=== PATIENT | male | born 1970 | race Two or more races ===

== ENCOUNTER → 2023-01-13 09:11 | Outpatient (BNVA) | payer MEDICAID, SELFPAY | PROVIDERS: PCP Student in an Organized Health Care Education/Training Program; Visit Provider Nurse Practitioner Family | DX: G25.81 Restless legs syndrome (principal); G47.19 Other hypersomnia; R06.83 Snoring; R06.81 Apnea, not elsewhere classified | CPT/HCPCS: 99202 ==

== ENCOUNTER → 2023-02-15 09:45 | Outpatient (REF) | payer MEDICAID, SELFPAY | LOC: HO.SL 09:45 | PROVIDERS: PCP Student in an Organized Health Care Education/Training Program; Visit Provider Nurse Practitioner Family | DX: G47.33 Obstructive sleep apnea (adult) (pediatric) (principal); G25.81 Restless legs syndrome; G47.19 Other hypersomnia; R06.83 Snoring | CPT/HCPCS: 95806 ==

== ENCOUNTER → 2023-02-15 09:56 | Outpatient (BNV) | payer MEDICAID, SELFPAY | PROVIDERS: PCP Student in an Organized Health Care Education/Training Program; Visit Provider Psychiatry & Neurology Neurology | DX: G47.33 Obstructive sleep apnea (adult) (pediatric) (principal) | CPT/HCPCS: 95806 ==

== ENCOUNTER → 2023-03-16 19:30 | Outpatient (REF) | payer MEDICAID, SELFPAY | LOC: HO.SL 19:30 | PROVIDERS: PCP Student in an Organized Health Care Education/Training Program; Visit Provider Nurse Practitioner Family | DX: G47.33 Obstructive sleep apnea (adult) (pediatric) (principal) | CPT/HCPCS: 95811 ==

== ENCOUNTER → 2023-03-16 21:05 | Outpatient (BNV) | payer MEDICAID, SELFPAY | PROVIDERS: PCP Student in an Organized Health Care Education/Training Program; Visit Provider Psychiatry & Neurology Neurology | DX: G47.33 Obstructive sleep apnea (adult) (pediatric) (principal) | CPT/HCPCS: 95811 ==

== ENCOUNTER 2023-04-06 08:19 | Outpatient (AMB) | payer MEDICAID, SELFPAY ==
[2023-04-06 08:28] VITALS: BP 114/76; PULSE 64; O2SAT 95; BMI 35.5
--- NOTE | 2023-04-06 08:28 | MHC.OFFVIS ---
Intake Vital Signs 04/06/23 08:28 Height 5 ft 8 in Weight 233 lb 6 oz BMI 35.5 BP 114/76 Blood Pressure Location Rt brachial Position Sitting Pulse 64 Pulse Source Pulse Oximeter Pulse Oximetry (%) 95 Oxygen Delivery Method Room Air Intake Visit Reasons: 2 mo f/u for JAXSON -Confirmed Intake Note: Pt presents as a 2 month f/u for JAXSON. Knurling Machine Tender Required: No Allergies Penicillins Allergy (Severe, Verified 04/06/23 08:31) [facility] Medication List - Last Reconciled 04/06/23 by Jennifer Chandler CNP albuterol sulfate 90 mcg/actuation (Ventolin HFA) inhalation DAILY atorvastatin 40 mg PO DAILY clonazepam 0.5 mg PO DAILY PRN fluticasone propionate 50 mcg/actuation sprays intranasal hydroxyzine pamoate 50 mg PO TID magnesium oxide 400 mg PO DAILY 30 days magnesium oxide 400 mg PO DAILY mirtazapine 45 mg PO BEDTIME paliperidone palmitate (Invega Sustenna) mg IM trazodone mg PO HPI HPI Comments History of Present Illness Details 52 y/o male patient presents for follow up of sleep study. The home sleep study result was significant for severe degree of sleep apnea. The AHI was 69/hr and oxygen brenda was 79%. Pt trialed on CPAP-BiPAP. The obstruction events were controlled but there were treatment emergent central apneas. Pt reports that he sleeps better with magnesium 400 mg,mirtizapine 45 mg and trazodone 50 mg. He had a phone call from [facility] to confirm his information and is insurance processing for BiPAP. [facility] History H/O hernia repair History of surgery on arm Family History Mother Colon cancer Father No problems noted. Social History (Updated 04/06/23 @ 08:34 by Kaylen Fowler CMA) Alcohol intake: former Patient Tobacco Use Status: Current everyday Tobacco user Review of Systems Const All systems reviewed & are unremarkable except as noted in HPI and below ENT Reports Normal hearing present Neuro Reports Normal hearing present Physical Exam Vital Signs: Last Vital Signs Pulse 64 04/06/23 08:28 BP 114/76 04/06/23 08:28 Pulse Ox 95 04/06/23 08:28 Oxygen Delivery Method Room Air 04/06/23 08:28 BMI result Body Mass Index 35.5 Const General: cooperative and tired appearing Nutritional Appearance: obese Orientation/consciousness: patient oriented x3 HEENT Throat: Yes other (mallampati grade 4) Neck Neck: Yes full ROM and Yes supple Resp Effort & Inspection: normal respiratory effort and able to speak in complete sentences Neuro General: patient oriented x3 and gait normal Cranial nerves: Yes Bilaterally intact EOM present, Yes Normal facial strength present, Yes Midline tongue present, Yes Symmetric palate elevation present, Yes Normal hearing present, Yes Ability to bilaterally rotate head present and Yes Ability to bilaterally elevate shoulders present Cognition (Neuro): normal cognition Gait exam (Neuro): Normal gait present Motor exam (neuro): 5/5 motor strength present throughout, Pronator motor function not present and no tremor noted Psych Appearance: grossly normal Mental Status: mental status grossly normal Speech and movement: Normal speech and movement present Affect: normal affect Attitude: cooperative Assessment & Plan Assessment & Plan (1) JAXSON (obstructive sleep apnea): Comment: Severe degree of sleep apnea. The AHI was 68/hr and oxygen brenda was 79%. O2sat <88% was 143 min. Code(s): G47.33 - Obstructive sleep apnea (adult) (pediatric) Plan Advised patient to start BiPAP 23/01 and if pt has frequent central apnea will schedule for ASV titration. Stressed compliance, use BiPAP nightly and more than 4 hrs. [facility] care information given to patient. Continue to take magnesium 400 mg qHS. Medications: Refilled magnesium oxide 400 mg PO DAILY 30 days 30 tabs 1RF magnesium oxide 400 mg PO DAILY 30 days 30 tabs 4RF Coding Level of Care Code Est Pt Level 3 (70828) Diagnoses JAXSON (obstructive sleep apnea) G47.33
== END 2023-04-06 08:58 | disposition home or self-care (01) ==
PROVIDERS: PCP Student in an Organized Health Care Education/Training Program; Visit Provider Nurse Practitioner Family
DX: G47.33 Obstructive sleep apnea (adult) (pediatric) (principal)
CPT/HCPCS: 99213

== ENCOUNTER → 2023-04-06 08:19 | Outpatient (BNVA) | payer MEDICAID, SELFPAY | PROVIDERS: PCP Student in an Organized Health Care Education/Training Program; Visit Provider Nurse Practitioner Family | DX: G47.33 Obstructive sleep apnea (adult) (pediatric) (principal); Z79.899 Other long term (current) drug therapy | CPT/HCPCS: 99212 ==

== ENCOUNTER 2023-06-09 09:33 | Outpatient (REF) | payer MEDICAID, SELFPAY ==
[2023-06-09 15:38] LABS: Anion Gap 11 (12-20); Blood Urea Nitrogen 5 mg/dL (9-16); Calcium 9.3 mg/dL (8.4-10.2); Carbon Dioxide 31 mmol/L (22-29); Chloride 100 mmol/L (96-108); Estimated Glomerular Filt Rate > 60; Glucose Random 61 mg/dL (60-115); Sodium 138 mmol/L (135-145)
[2023-06-09 15:57] LABS: TSH reflex Free T4 1.61 uIU/mL (0.32-4.0)
[2023-06-13 13:08] LABS: Testosterone, Total 69 ng/dL (250-1100)
== END 2023-06-09 09:34 | disposition home or self-care (01) ==
LOC: HO.CHCLDS 09:33
PROVIDERS: Visit Provider Internal Medicine
DX: N52.8 Other male erectile dysfunction (principal)
CPT/HCPCS: 36415; 80048; 84403; 84443

== ENCOUNTER 2023-09-21 09:42 | Outpatient (REF) | payer MEDICAID, SELFPAY ==
[2023-09-21 14:40] LABS: Alanine Aminotransferase 26 U/L (0-40); Albumin Level 3.7 g/dL (3.5-5.0); Alkaline Phosphatase 127 U/L (39-117); Anion Gap 13 (12-20); Aspartate Amino Transferase 20 U/L (5-37); Bilirubin Direct 0.2 mg/dL (0.0-0.5); Bilirubin Total 0.3 mg/dL (0.0-1.0); Blood Urea Nitrogen 6 mg/dL (9-16); Calcium 9.3 mg/dL (8.4-10.2); Carbon Dioxide 29 mmol/L (22-29); Chloride 98 mmol/L (96-108); Cholesterol 156 mg/dL (<200); Estimated Glomerular Filt Rate > 60; Glucose Random 83 mg/dL (60-115); HDL Cholesterol 71 mg/dL (>40); LDL Cholesterol Calculated 74 mg/dL (<100); Potassium 4.2 mmol/L (3.3-5.1); Sodium 136 mmol/L (135-145); Total Protein 7.2 g/dL (6.5-8.0); Triglycerides 57 mg/dL (<150)
[2023-09-21 14:50] LABS: PSA,Total (Free>4and<10) 0.45 ng/mL (0.00-4.00)
[2023-09-22 04:13] LABS: ~HepC Num1 8.13 S/CO (0.00-0.79); ~Hepatitis C Antibody Reactive (Nonreactive)
[2023-09-25 16:04] LABS: HCV Log PCR <1.18 NOT DETECTED Log IU/mL (NOT DETECTED); HepC Viral Load <15 NOT DETECTED IU/mL (NOT DETECTED)
== END 2023-09-21 09:43 | disposition home or self-care (01) ==
LOC: HO.CHCLDS 09:42
PROVIDERS: Visit Provider Student in an Organized Health Care Education/Training Program
DX: E78.00 Pure hypercholesterolemia, unspecified (principal); B18.2 Chronic viral hepatitis C; Z12.5 Encounter for screening for malignant neoplasm of prostate
CPT/HCPCS: 36415; 80048; 80061; 80076; 84153; 86803; 87522

== ENCOUNTER 2024-03-05 10:32 | Outpatient (REF) | payer MEDICAID, SELFPAY | END 2024-03-05 10:33 | disposition home or self-care (01) | LOC: HO.CHCLDS 10:32 | PROVIDERS: Visit Provider Student in an Organized Health Care Education/Training Program | DX: Z13.89 Encounter for screening for other disorder (principal) | CPT/HCPCS: 36415; 80048 ==

== ENCOUNTER 2025-04-23 10:43 | Outpatient (REF) | payer MEDICAID, SELFPAY ==
--- OUTSIDE RECORDS SUMMARY | 2025-04-23 10:15 | XMS_ITS | Encounter Summary ---
Author Organization [employer] Address [address] [facility] 7t [place] [address] Care Team Providers Care Back Up Worker Name Role Phone Tanja Perry MD Primary Care Provider [phone] Reason for Visit * Reason Comments Annual Exam Encounter Details Date Type Department Care Team (Latest Contact Info) Description 04/23/2025 10:15 AM EDT Office Visit [facility] CHC MED & PEDS [address] [place], [place] [phone] Tanja Perry MD [address] [place], [place] [phone] Primary osteoarthritis of right knee (Primary Dx); Chronic hepatitis C without hepatic coma (CMS/HCC); Bilateral leg edema; Intentional heroin overdose, subsequent encounter Social History Tobacco Use Types Packs/Day Years Used Date Smoking Tobacco: Every Day Cigarettes Passive Smoke Exposure: Current Smokeless Tobacco: Never Tobacco Cessation:Ready to Q uit: Not Asked; Counseling Given: Not Answered Depression Answer Date Recorded Patient Health Questionnaire-9 Score 8 04/23/2025 Patient Health Questionnaire-9 Score 8 04/23/2025 Last PHQ-9: Questionnaire Data Not on file 0 04/23/2025 Housing Stability Answer Date Recorded What is your housing situation today? I have louise hammonds 03/05/[address] you li ve. Do you have problems with any of the following? None of the above 03/05/2024 Food Insecurity Answer Date Recorded Within the past 12 months, y ou worried that your food would run out before you got money to buy more: Never True 03/05/2024 Within the past 12 months,th e food you bought just didn't last and you didn't have enough money to get more: Never True Transportation Answer Date Recorded In the past 12 months, has l ack of transportation kept you from medical appts, meetings, work or from getting things needed for daily living? Yes, it has kept me from medical appointments or getting medications. 03/05/2024 Utilities Answer Date Recorded In the past 12 months, has t he electric, gas, oil or water company threatened to shut off services in your home? No 03/05/2024 Depression Answer Date Recorded Patient Health Questionnaire-2 Score 2 04/23/2025 Internet Access Answer Date Recorded Internet Access Q1 Yes 04/08/2024 Internet Access Q2 Not on file 04/08/2024 Sex and Gender Information Value Date Recorded Sex Assigned at Male 06/06/2022 10:29 AM EDT Legal Sex Male 10:29 AM EDT Gender Identity Male 06/06/2022 10:29 AM EDT Sexual Orientation Straight 06/06/2022 10 :29 AM EDT documented as of this encounter Last Filed Vital Signs Vital Sign Reading Time Taken Comments Blood Pressure 130/76 04/23/2025 10:09 AM EDT Pulse 58 04/23/2025 10:09 AM EDT Temperature 36.3 C (97.3 F) 04/23/2025 10:09 AM EDT Respiratory Rate 20 04/23/2025 10:09 AM EDT Oxygen Saturation 97% 04/23/2025 10:09 AM EDT Inhaled Oxygen Concentration - - Weight 88.9 kg (196 lb) 04/23/2025 10:09 AM EDT Height 170.8 cm (5' 7.25 ) 04/23/2025 10:09 AM E DT Body Mass Index 30.47 04/23/2025 10:09 AM EDT documented in this encounter Functional Status * Over the past 2 weeks, how often have you been bothered by any of the following problems? Question Answer Date of Assessment Author Patient Health Questionnaire -2 Score 2 04/23/2025 10:09 AM EDT Tanya Pedroza MA * Little interest or pleasure in doing things Answer Date of Assessment Author Several days 04/23/2025 10:09 AM NORMT Lv Pedroza MA * Feeling down, depressed, or hopeless Answer Date of Assessment Author Several days 04/23/2025 10:09 AM EDT Lv Pedroza MA * Trouble falling or staying asleep, or sleeping too much Answer Date of Assessment Author Nearly every day 04/23/2025 10:09 AM Tanya Bacon MA * Feeling tired or having little energy Answer Date of Assessment Author More than half the days 04/23/2025 10:09 AM Tanya Bacon MA * Poor appetite or overeating Answer Date of Assessment Author Not at all 04/23/2025 10:09 AM Lv Bacon MA * Feeling bad about yourself - or that you are a failure or have let yourself or your family down Answer Date of Assessment Author Several days 04/23/2025 10:09 AM Lv Bacon MA * Trouble concentrating on things, such as reading the newspaper or watching television Answer Date of Assessment Author Not at all 04/23/2025 10:09 AM Lv Bacon MA * Moving or speaking so slowly that other people could have noticed? Or the opposite - being so fidgety or restless that you have been moving around a lot more than usual. Answer Date of Assessment Author Not at all 04/23/2025 10:09 AM Lv Bacon MA * Thoughts that you would be better off or hurting yourself in some way Answer Date of Assessment Author Not at all 04/23/2025 10:09 AM Lv Bacon MA * Patient Health Questionnaire-9 Score Answer Date of Assessment Author 8 04/23/2025 10:09 AM Lv Bacon MA * How difficult have these problems made it for you to do your work, take care of things at home, or get along with other people? Answer Date of Assessment Author Somewhat difficult 04/23/2025 10:09 AM Tanya Bacon MA documented as of this encounter Progress Notes * Tanja Perry MD - 04/23/2025 10:15 AM EDT Subjective Patient ID: Chester Bryan is a 54 y.o. male who presents for No chief complaint on file.. Knee Pain There was no injury mechanism. The pain is present in the right knee and left knee. The quality of the pain is described as aching. The pain is at a severity of 6/10. The pain is moderate. The pain has been Constant since onset. Associated symptoms include an inability to bear weight. The symptoms are aggravated by movement and weight bearing. He has tried nothing for the symptoms. Review of Systems Constitutional: Negative. Respiratory: Negative. Cardiovascular: Negative. Gastrointestinal: Negative. Genitourinary: Negative. Musculoskeletal: Positive for arthralgias and gait problem. Objective Physical Exam Constitutional: Appearance: Normal appearance. HENT: Head: Normocephalic and atraumatic. Right Ear: Tympanic membrane normal. Left Ear: Tympanic membrane normal. Mouth/Throat: Mouth: Mucous membranes are moist. Eyes: Pupils: Pupils are equal, round, and reactive to light. Cardiovascular: Rate and Rhythm: Normal rate and regular rhythm. Pulmonary: Effort: Pulmonary effort is normal. Breath sounds: Normal breath sounds. Abdominal: General: Abdomen is flat. Palpations: Abdomen is soft. Musculoskeletal: General: Normal range of motion. Cervical back: Normal range of motion. Lumbar back: No spasms or tenderness. Skin: General: Skin is warm. Neurological: Mental Status: He is alert. Assessment/Plan Diagnoses and all orders for this visit: Primary osteoarthritis of right knee Comments: Xray ordered Started on tylenol as needed referred to ortho Orders: - XR Knee 1-2 Views Right; Future Chronic hepatitis C without hepatic coma (CMS/HCC) Comments: Labs ordered today Non compliant with follow ups and treatment Bilateral leg edema Comments: Advised low salt diet and leg elevation Labs ordered today Orders: - Basic Metabolic Panel; Future - Lipid Panel, Standard; Future - Hepatic Function Panel; Future Intentional heroin overdose, subsequent encounter Comments: pt was treated in the hospital for same Follows with Methadone clinic documented in this encounter Plan of Treatment Scheduled Orders Name Type Priority Associated Diagnoses Orde r Schedule Basic Metabolic Panel Lab Routine Bilateral leg edema Expected: 04/23/2025 (Approximate), Expires: 04/23/2026 Lipid Panel, Standard Lab Routine Bilateral leg edema Expected: 04/23/2025 (Approximate), Expires: 04/23/2026 Hepatic Function Panel Lab Routine Bilateral leg edema Expected: 04/23/2025 (Approximate), Expires: 04/23/2026 XR Knee 1-2 Views Right Imaging Routine Primary osteoarthritis of right knee Expected: 04/23/2025, Expires: 04/23/2026 documented as of this encounter Visit Diagnoses Diagnosis Primary osteoarthritis of right knee- Primary Chronic hepatitis C without hepatic coma (CMS/HCC) Bilateral leg edema Edema Intentional heroin overdose, subsequent encounter documented in this encounter Additional Health Concerns Assessment Noted Time PHQ-9 Depression Total Score: 8 04/23/20 25 10:09 AM EDT documented as of this encounter Care Teams Back Up Worker Relationship Specialty Start Date End Date Tanja Perry MD [address] [place] [id number] PCP - General Family Medicine 11/17/15 Vi Pacheco Gravity ManagerNaval Aircrewman Helicopter 09/12/23 [facility] [place] [facility] 02/29/24 documented as of this encounter
--- OUTSIDE RECORDS SUMMARY | 2025-04-23 13:32 | XMS_ITS | Encounter Summary ---
Author Organization [employer] Address [address] [facility] [address] [place] [address] Care Team Providers Care Assembler Utility Buildings Name Role Phone Tanja Perry MD Primary Care Provider [phone] Javier Smith RN Unavailable [phone] Reason for Visit * Reason Onset Date Comments Nurse Triage 06/07/2023 Encounter Details Date Type Department Care Team ([facility] st Contact Info) Description 06/07/2023 Telephone [facility] CHC MED & PEDS [address] [place], [place] [phone] Tanja Perry MD [address] [place] [address] Nurse Triage Social History Tobacco Use Types Packs/Day Years Used Date Smoking Tobacco: Every Day Cigarettes Passive Smoke Exposure: Current Smokeless Tobacco: Never Depression Answer Date Recorded Patient Health Questionnaire-9 Score 6 10/20/2022 Housing Stability Answer Date Recorded What is your housing situation today? I have louisekristi hammonds [address] you li ve. Do you have problems with any of the following? None of the above 2023 Food Insecurity Answer Date Recorded Within the past 12 months, y ou worried that your food would run out before you got money to buy more: Sometimes True 2022 Within the past 12 months,th e food you bought just didn't last and you didn't have enough money to get more: Sometimes True 2023 Transportation Answer Date Recorded In the past 12 months, has l ack of transportation kept you from medical appts, meetings, work or from getting things needed for daily living? No 2023 Utilities Answer Date Recorded In the past 12 months, has t he electric, gas, oil or water company threatened to shut off services in your home? No 2023 Depression Answer Date Recorded Patient Health Questionnaire-2 Score 2 10/20/2022 Sex and Gender Information Value Date Recorded Sex Assigned at Male 06/06/2022 10:29 AM EDT Legal Sex Male 10:29 AM EDT Gender Identity Male 06/06/2022 10:29 AM EDT Sexual Orientation Straight 06/06/2022 10 :29 AM EDT documented as of this encounter Miscellaneous Notes * Telephone Encounter - Heidy Ya RN - 06/07/2023 4:28 PM EDT Triage call Pt reports has been in a program for about a year and is home now. Since Pt has been home realizes Pt is unable to obtain an erection. Pt denies any sexually transmitted diseases, pain, rash urinary symptoms. Pt requests to see provider. Apt with Dr. Mattson 06/08/23 @ 330pm, Insurance is verified as active prior to booking. Protocol Used: Penis and Scrotum Symptoms (Adult) Protocol-Based Disposition: See in Office or Video Visit Today or Tomorrow Positive Triage Question: * ALL other penis - scrotum symptoms (Exception: Painless rash < 24 hours duration.) * All higher-acuity triage questions were negative Care Advice Discussed: * Reasons To Call Back - You have more questions * Telephone Encounter - Mary Yoo - 06/07/2023 4:10 PM EDT Symptom: Penis Symptoms Outcome: Schedule an appointment to be seen within 24 hours Reason: erectile dysfunction The caller accepted this outcome Please contact pt at [phone] documented in this encounter Plan of Treatment Not on file documented as of this encounter Visit Diagnoses Not on filedocumented in this encounter Additional Health Concerns Assessment Noted Time PHQ-9 Depression Total Score: 6 10/21/19 23 9:27 AM EDT documented as of this encounter Care Teams Assembler Utility Buildings Relationship Specialty Start Date End Date Tanja Perry MD [address] [place] [id number] PCP - General Family Medicine 11/17/15 Javier Smith, ELIZABETH [address] [place] [phone] Registered Nurse Family Medicine 02/03/25 02/04/25 Vi Pacheco Scissors GrinderForensics Analyst 09/12/23 [facility] 02/29/24 documented as of this encounter
--- OUTSIDE RECORDS SUMMARY | 2025-04-23 13:32 | XMS_ITS | Encounter Summary ---
Author Organization [employer] Address [address] [facility] 7t [place] [address] Care Team Providers Care Talkback Host Name Role Phone Tanja Perry MD Primary Care Provider [phone] Reason for Visit * Reason Onset Date Comments Chart Prep 04/22/2025 Encounter Details Date Type Department Care Team ([facility] st Contact Info) Description 04/22/2025 Telephone [facility] CH[facility] MED & PEDS [address] [place], [place] [phone] Tanja Perry MD [address] [place], [place] [phone] Chart Prep Social History Tobacco Use Types Packs/Day Years [...] encounter Miscellaneous Notes * Telephone Encounter - Tanya Pedroza MA - 04/22/2025 2:32 PM EDT Chart Prep Labs: done Images: done Referrals: complete Vaccines due: due Screenings: colonoscopy Overdue care gaps: SBIRT, SDOH, PHQ-9, Disability screen, and Tobacco documented in this encounter Plan of Treatment Not on file documented as of this encounter Visit Diagnoses Not on filedocumented in this encounter Additional Health Concerns Assessment Noted Time PHQ-9 Depression Total Score: 4 03/05/20 24 9:28 AM EDT documented as of this encounter Care Teams Talkback Host Relationship Specialty Start Date End Date Tanja Perry MD [address] [place] [id number] PCP - General Family Medicine 11/17/15 Vi Pacheco Finance LeadDirector Of Search Engine Marketing 09/12/23 [facility] 02/29/24 documented as of this encounter
--- OUTSIDE RECORDS SUMMARY | 2025-04-23 13:32 | XMS_ITS | Encounter Summary ---
Author Organization [employer] Address [address] [facility] [address] [place] [address] Care Team Providers Care Student Truck Driver Name Role Phone Tanja Perry MD Primary Care Provider [phone] Javier Smith RN Unavailable [phone] Encounter Details Date Type Department Care Team ([facility] st Contact Info) Description 02/12/2024 Orders Only [facility] CHC MED & PEDS [address] [place] [address] ProviderChuck MD Social History Tobacco Use Types Packs/Day Years Used Date Smoking Tobacco: Every Day Cigarettes Passive Smoke Exposure: Current Smokeless Tobacco: Never Depression Answer Date Recorded Patient Health Questionnaire-9 Score 6 10/20/2022 Housing Stability Answer Date Recorded What is your housing situation today? I have louise hammonds [address] you [...] AM EDT documented as of this encounter Plan of Treatment Not on file documented as of this encounter Procedures Procedure Name Priority Date/Time Associated Diagnosis Comments CT CHEST WO CONTRAST Routine 02/12/2024 11:[address] HEAD WO CONTRAST Routine 02/11/2024 9:[address] SOFT TISSUE NECK W CONTRAST Routine 02/11/2024 9:[address] ABDOMEN PELVIS W CONTRAST Routine 02/11/2024 9:13 AM EDT documented in this encounter Results * CT Chest w/o Contrast (02/12/2024 11:52 AM EDT) Anatomical Region Laterality Modality Body, Chest Computed Tomogra phy Historical Provider IMBuffy CT PROCEDURES Final R esult * CT Head w/o Contrast (02/11/2024 9:22 AM EDT) Anatomical Region Laterality Modality Head, Neck Computed Tomogra phy Historical Provider IMBuffy CT PROCEDURES Final R esult * CT SOFT TISSUE NECK W CONTRAST (02/11/2024 9:15 AM EDT) Anatomical Region Laterality Modality Computed Tomogra phy Historical Provider IMBuffy CT PROCEDURES Final R esult * CT Abdomen Pelvis w/ Contrast (02/11/2024 9:13 AM EDT) Anatomical Region Laterality Modality Body, Pelvis, Abdomen Computed T omography Historical Provider IMBuffy CT PROCEDURES Final R esult documented in this encounter Visit Diagnoses Not on filedocumented in this encounter Additional Health Concerns Assessment Noted Time PHQ-9 Depression Total Score: 6 10/21/19 23 9:27 AM EDT documented as of this encounter Care Teams Student Truck Driver Relationship Specialty Start Date End Date Tanja Perry MD [address] [place] [id number] PCP - General Family Medicine 11/17/15 Javier Smith, RN [address] [place] [phone] Registered Nurse Family Medicine 02/03/25 02/04/25 Vi Pacheco Manager PracticeDiesel Roller Operator 09/12/23 [facility] 02/29/24 documented as of this encounter
--- OUTSIDE RECORDS SUMMARY | 2025-04-23 13:32 | XMS_ITS | Encounter Summary ---
Author Organization [employer] Address [address] [facility] 7t [place] [address] Care Team Providers Care Meter Reader Inspector Name Role Phone Tanja Perry MD Primary Care Provider [phone] Javier Smith RN Unavailable [phone] Encounter Details Date Type Department Care Team ([facility] st Contact Info) Description 06/14/2023 Orders Only [facility] CHC MED & PEDS [address] [place], [place] [phone] Isak Mattson MD [address] [place], [place] [phone] Low testosterone in male (Primary Dx); Other male erectile dysfunction Social History Tobacco Use Types Packs/Day Years [...] t he electric, gas, oil or water opentabs threatened to shut off services in your [...] as of this encounter Plan of Treatment Scheduled Orders Name Type Priority Associated Diagnoses Orde r Schedule Testosterone, Free (Dialysis) And Total, MS Lab Routine Low testosterone in male Expected: 06/14/2023 (Approximate), Expires: 06/14/2024 documented as of this encounter Visit Diagnoses Diagnosis Low testosterone in male- Primary Other male erectile dysfunction documented in this encounter Additional Health Concerns Assessment Noted Time PHQ-9 Depression Total Score: 6 10/21/19 23 9:27 AM EDT documented as of this encounter Care Teams Meter Reader Inspector Relationship Specialty Start Date End Date Tanja Perry MD [address] [place] [id number] PCP - General Family Medicine 11/17/15 Javier Smith RN [address] [place] [address] Registered Nurse Family Medicine 02/03/25 02/04/25 Vi Pacheco Saw GrinderSoftware Consultant 09/12/23 [facility] 02/29/24 documented as of this encounter
--- OUTSIDE RECORDS SUMMARY | 2025-04-23 13:32 | XMS_ITS | Encounter Summary ---
Author Organization [employer] Address [address] [facility] [address] [place] [address] Care Team Providers Care Hoisting Machine Operator Name Role Phone Tanja Perry MD Primary Care Provider [phone] Javier Smith RN Unavailable [phone] Reason for Visit * Reason Onset Date Comments Medication Question 06/09/2023 Encounter Details Date Type Department Care Team ([facility] Contact Info) Description 06/09/[address] [facility] CHC MED & PEDS [address] [place], [place] [phone] Tanja Perry MD [address] [place] [address] Medication Question Social History Tobacco Use Types Packs/Day Years [...] encounter Miscellaneous Notes * Telephone Encounter - Mary Fredo - 06/09/2023 4:25 PM EDT Tc from pt states insurance does not cover vardenafil (Levitra) 10 MG tablet. Pt is requesting an alternative. Please contact pt at [phone] documented in this encounter Plan of Treatment Not on file documented as of this encounter Visit Diagnoses Not on filedocumented in this encounter Additional Health Concerns Assessment Noted Time PHQ-9 Depression Total Score: 6 10/21/19 23 9:27 AM EDT documented as of this encounter Care Teams Hoisting Machine Operator Relationship Specialty Start Date End Date Tanja Perry MD [address] [place] [address] PCP - General Family Medicine 11/17/15 Javier Smith, ELIZABETH [address] [place] [id number] Registered Nurse Family Medicine 02/03/25 02/04/25 Vi Pacheco Change Management SpecialistAerographer 09/12/[address] [facility] 02/29/24 documented as of this encounter
--- OUTSIDE RECORDS SUMMARY | 2025-04-23 13:32 | XMS_ITS | Encounter Summary ---
Author Organization [employer] Address [address] [place] [address] Care Team Providers Care Mind Reader Name Role Phone Tanja Perry MD Primary Care Provider [phone] Encounter Details Date Type Department Care Team (Latest Contact Info) Description 04/23/2025 Travel Social History Tobacco Use Types Packs/Day Years Used Date Smoking Tobacco: Every Day Cigarettes Passive Smoke Exposure: Current Smokeless Tobacco: Never Depression Answer Date Recorded Patient Health Questionnaire-9 Score 8 04/23/2025 Patient Health Questionnaire-9 Score 8 04/23/2025 Last PHQ-9: Questionnaire Data Not on file 0 04/23/2025 Housing Stability Answer Date Recorded What is your housing situation today? I have louise nasra 03/05/[address] you li [...] AM EDT documented as of this encounter Functional Status * Over the past 2 weeks, how often have you been bothered by any of the following problems? Question Answer Date of Assessment Author Patient Health Questionnaire -2 Score 2 04/23/2025 10:09 AM Tanya Bacon MA * Little interest or pleasure in doing things Answer Date of Assessment Author Several days 04/23/2025 10:09 AM Lv Bacon [place] * Feeling down, depressed, or hopeless Answer Date of Assessment Author Several days 04/23/2025 10:09 AM Lv Bacon [place] * Trouble falling or staying asleep, [...] Bacon MA documented as of this encounter Plan of Treatment Not on file documented as of this encounter Visit Diagnoses Not on filedocumented in this encounter Additional Health Concerns Assessment Noted Time PHQ-9 Depression Total Score: 8 04/23/20 25 10:09 AM EDT documented as of this encounter Care Teams Mind Reader Relationship Specialty Start Date End Date Tanja Perry MD [address] [place] [id number] PCP - General Family Medicine 11/17/15 Vi Pacheco Culinary InternProfessional Architect 09/12/23 [facility] 02/29/24 documented as of this encounter
--- OUTSIDE RECORDS SUMMARY | 2025-04-23 13:32 | XMS_ITS | Encounter Summary ---
Author Organization [employer] Address [address] [facility] [address] [place] [address] Care Team Providers Care Wildlife Technician Name Role Phone Tanja Perry MD Primary Care Provider [phone] Javier Smith RN Unavailable [phone] Reason for Visit * Reason Onset Date Comments Appointment Request 08/24/2023 Encounter Details Date Type Department Care Team ([facility] Contact Info) Description 08/24/2023 Telephone [facility]EDS [address] [place], [place] [phone] Tanja Perry MD [address] [place] [address] Appointment Request Social History Tobacco Use Types Packs/Day Years [...] encounter Miscellaneous Notes * Telephone Encounter - Monique Pastor - 08/25/2023 2:13 PM EST PT-1 submitted for patient. They will receive a letter of approval or denial in the mail. * Telephone Encounter - Ray Lopez - 08/24/2023 10:09 AM EST Tc from pt requesting a prostate exam with pcp. Pt denied any concerns. Please contact pt at [phone] documented in this encounter Plan of Treatment Not on file documented as of this encounter Visit Diagnoses Not on filedocumented in this encounter Additional Health Concerns Assessment Noted Time PHQ-9 Depression Total Score: 6 10/21/19 23 9:27 AM EDT documented as of this encounter Care Teams Wildlife Technician Relationship Specialty Start Date End Date Tanja Perry MD [address] [place] [id number] PCP - General Family Medicine 11/17/15 Javier Smith RN [address] [place] [address] Registered Nurse Family Medicine 02/03/25 02/04/25 Vi Pacheco DebeaderReal Estate Salesperson 09/12/[address] [facility] 02/29/24 documented as of this encounter
--- OUTSIDE RECORDS SUMMARY | 2025-04-23 13:32 | XMS_ITS | Encounter Summary ---
Author Organization [employer] Address [address] [facility] [address] [place] [address] Care Team Providers Care Icing Maker Name Role Phone Tanja Perry MD Primary Care Provider [phone] Javier Smith RN Unavailable [phone] Encounter Details Date Type Department Care Team (Latest Contact Info) Description 02/18/2019 Abstract [facility] CONVERSIONS Dental, Provider, DDS Social History Tobacco Use Types Packs/Day Years Used Date Smoking Tobacco: Never Assessed Sex and Gender Information Value Date Recorded Sex Assigned at Male 06/06/2022 10:29 AM EDT Legal Sex Male 10:29 AM EDT Gender Identity Male 06/06/2022 10:29 AM EDT Sexual Orientation Straight 06/06/2022 10 :29 AM EDT documented as of this encounter Plan of Treatment Not on file documented as of this encounter Visit Diagnoses Not on filedocumented in this encounter Care Teams Icing Maker Relationship Specialty Start Date End Date Tanja Perry MD [address] [place] [address] PCP - General Family Medicine 11/17/15 Javier Smith, RN [address] [place] [address] Registered Nurse Family Medicine 02/03/25 02/04/25 Vi Pacheco Ceramics EngineerWindows Deployment Technician 09/12/[address] [facility] 02/29/24 documented as of this encounter
--- OUTSIDE RECORDS SUMMARY | 2025-04-23 13:32 | XMS_ITS | Clinical Summary ---
Author Organization [employer] Address [address] [facility] [address] [place] [address] Care Team Providers Care Mva Operator Name Role Phone Tanja Perry MD Primary Care Provider [phone] Allergies Active Allergy Reactions Criticality Noted Date Comments Penicillin G High 11/17/2015 Other reaction(s): Anaphylaxis,Hives Penicillins 06/08/2023 Medications * This document contains information received from the source organization and may not represent a complete record from that organization. clonazePAM (KlonoPIN) 0.5 MG tablet Take 1 tablet by mouth in the morning. Take 1 tablet by oral route every day as needed. Active traZODone (Desyrel) 50 MG tablet Take 1 tablet by mouth at bedtime. Take 1 tablet by oral route every day at bedtime and may repeat x1 dose if needed in 2hrs 2 Active methadone (Methadose) 40 MG dispersible tablet Take 85 mg by mouth 1 (one) time each day. 2 Active vardenafil (Levitra) 10 MG tabletIndications: Other male erectile dysfunction TAKE 1 TABLET 1 HOUR BEFORE SEXUAL RELATIONS ONCE DAILY NEEDED. 10 tablet 3 Active fluticasone (Flonase Allergy Relief) 50 MCG/ACT nasal sprayIndications:M ild asthma without complication, unspecified whether persistent Administer 2 sprays into each nostril in the morning. Inhale 2 spray by intranasal route every day in each nostril 16 g 11 4 Active nicotine (Nicoderm CQ) 7 MG/24HR patch Place 1 patch on the skin 1 (one) time each day at the same time. 30 patch 3 4 Active albuterol 108 (90 Base) MCG/ACT inhalerIndications :Mild intermittent asthma without complication Inhale 2 puffs every 4 (four) hours if needed for wheezing. 18 g 2 4 Active magnesium oxide (Mag-Ox) 400 (240 Mg) MG tablet Take 1 tablet by mouth Once per day. 4 Active Invega Sustenna 156 MG/ML suspension prefilled syringe Inject into the muscle every 30 (thirty) days. 4 Active hydrOXYzine pamoate (Vistaril) 50 MG capsule Take 1 capsule by mouth 3 times daily. 4 Active mirtazapine (Remeron) 45 MG tablet Take 1 tablet by mouth at bedtime. 3 Active ibuprofen 400 MG tablet Take 1 tablet (400 mg) by mouth every 6 (six) hours. Take 1 tablet by oral route every 6-8 hours as needed 60 tablet 4 Active permethrin (Elimite) 5 % cream apply to skin from hairline to toes and wash off 8-10 hours later 60 g 4 Active bacitracin-polymyx in b (Polysporin) ointment Apply topically 2 times daily. 15 g 3 4 Active atorvastatin (Lipitor) 40 MG tabletIndications: Hyperlipidemia, unspecified hyperlipidemia type Take 1 tablet by mouth every day 90 tablet 1 5 Active Active Problems Problem Noted Date Diagnosed Date Rash and nonspecific skin eruption 04/29/2024 Assessment & Plan (04/29/2024 11:46 AM EDT): Prescribing Ibuprofen, Ivermectin, Mupirocin, and Permethrin for Sx. 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 Heroin overdose 06/08/2023 06/08/2023 Asthma 11/17/2015 Chronic hepatitis C 11/17/2015 Mixed bipolar I disorder 11/17/2015 Nondependent opioid abuse 11/17/2015 Osteoarthritis 11/17/2015 Encounters Date Type Department Care Team Description 04/23/2025 10:15 AM EDT Office Visit [facility] [address] [place] [address] Tanja Perry MD Primary osteoarthritis of right knee (Primary Dx); Chronic hepatitis C without hepatic coma (CMS/HCC); Bilateral leg edema; Intentional heroin overdose, subsequent encounter 04/23/2025 Travel 04/22/2025 Telephone [facility] [address] [place] [address] Tanja Perry MD Chart Prep 04/16/2025 Patient Outreach [address] [address] Tanja Perry MD Pre-visit Planning (HDF unscheduled unable to LVM ) 04/14/2025 Telephone [facility] [address] [place] [address] Tanja Perry MD PT1 03/26/2025 Telephone [facility] [address] [place] [address] Tanja Perry MD Hospital Follow-up 03/04/2025 Telephone [facility] [address] [place] [address] Tanja Perry MD Nurse Triage 02/27/2025 Telephone [facility] [address] [place] [address] Tanja Perry MD No Show 02/20/2025 Patient Outreach [address] [address] Tanja Perry MD Care Coordination ([facility] ED Follow Up) 02/19/2025 Patient Outreach [address] [address] Tanja Perry MD Pre-visit Planning (Pre visit planning unable to LVM ) 02/04/2025 Patient Outreach [address] [address] Tanja Perry MD Care Coordination ([facility]- hospital discharge follow up call) 02/03/2025 Patient Outreach [address] [address] Tanja Perry MD from Last 3 Months Immunizations Immunization Administration Dates Next Due Influenza Injectable Quadriv alant Preservative Free IIV4 MDCK 05/20/2018 Influenza injectable quadriv alent IIV4 with preservative 08/12/2022,09/01/2017 Influenza injectable quadrivalent preservative f ree 09/14/2023 Influenza, seasonal, injectable, preservative fr ee 05/29/2024 Tdap 09/01/2017 Zoster, Recombinant 12/24/2021 Social History Tobacco Use Types Packs/Day Years [...] housing situation today? I have louisekristi hammonds 03/05/[address] you [...] Orientation Straight 06/06/2022 10 :29 AM EDT Last Filed Vital Signs Vital Sign Reading [...] Mass Index 30.47 04/23/2025 10:09 AM EDT Plan of Treatment Health Maintenance Due Date Last Done Comments CT Colonography 1968 Colonoscopy 1968 Colorectal Cancer Screening 1968 FIT DNA/Cologuard 1968 FIT 1968 FOBT 1968 Sigmoidoscopy 1968 Hepatitis A Vaccines (1 of 2 - Risk 2-dose series) 1987 Hepatitis B Vaccines (1 of 3 - 19+ 3-dose series) 1987 Pneumococcal Vaccine: 50+ Years (1 of 2 - PCV) 1987 Zoster Vaccines (2 of 2) 02/18/2022 12/24/2021 SDOH Screening 03/05/2025 03/05/2024 COVID-19 Vaccine (4 - season) 2025 09/24/2021, 01/12/2021, 12/15/2020 Influenza Vaccine (#1) 2025 , 09/14/2023, 08/12/2022, Additional history exists Alcohol/Substance Use Screening 04/23/2026 04/23/2025 Depression Screening 04/23/2026 04/23/2025, 04/23/20 25 Disability Screening 04/23/2026 04/23/2025 Tobacco Screening 04/23/2026 04/23/2025 DTaP/Tdap/Td Vaccines (2 - Td or Tdap) 09/01/2027 09/01/2017 Lipid Panel 09/21/2028 09/21/2023, 10/06, 02/18/2022 RSV Patients and Patients Aged 60 years or older (1 - 1-dose 75+ series) 2043 HIV Screening Completed 02/18/2022 HIB Vaccines Aged Out No longer eligi ble based on patient's age to complete this topic HPV Vaccines Aged Out No longer eligi ble based on patient's age to complete this topic IPV Vaccines Aged Out No longer eligi ble based on patient's age to complete this topic Meningococcal B Vaccine Aged Out No l onger eligible based on patient's age to complete this topic Meningococcal Vaccine Aged Out No sarika ravinder eligible based on patient's age to complete this topic RSV under 20 months Aged Out No longe r eligible based on patient's age to complete this topic Rotavirus Vaccines Aged Out No longer eligible based on patient's age to complete this topic Procedures Procedure Name Priority Date/Time Associated Diagnosis Comments LIPID PANEL, STANDARD Routine 09/21/2023 9:44 AM EST Hypercholesteremia HIV 1/2 ANTIGEN/ANTIBODY, FOURTH GENERATION W/RFL Routine 02/18/2022 11:15 AM EDT from Last 3 Months or Most Recently Relevant to Health Maintenance Results * Lipid Panel, Standard (09/21/2023 9:44 AM EST) Triglycerides 57 <150 mg/dL [facility] Comment:Desirable Triglyceri de: less than 150 mg/dLBorderline High Triglyceride 150-199 mg/dLHigh Triglyceride: 200-499 mg/dLVery High Triglyceride: greater than or equal to 5OO mg/dL Cholesterol 156 <200 mg/dL [facility] Comment:Desirable Cholestero l: less than 200 mg/dLBorderline High Cholesterol: 200-239 mg/dLHigh Cholesterol: greater than 239 mg/dL LDL Cholesterol Calculated 74 <100 mg/dL [facility] Comment:Desirable LDL: less than 100 mg/dLNear Optimal/Above Optimal LDL: 110- 129 mg/dLBorderline High LDL: 130-159 mg/dLHigh LDL: 160-189 mg/dLVery High LDL: greater than or equal to 190 mg/dL HDL Cholesterol 71 >40 mg/dL [facility] Comment:Desirable HDL: great er than 40 mg/dL Note: This HDL assay may give artificially low results in patients with liver disease. Blood Venous blood specimen / Unknown 09/21/2023 9:44 AM EST 09/21/2023 2:09 PM EST us Tanja Perry MD LAB BLOOD ORDERABLES Final Resul t Performing Organization Address City/[facility]/ZIP Co de Phone Number [facility] [address] [place] [address] [phone] * HIV 1/2 ANTIGEN/ANTIBODY,FOURTH GENERATION W/RFL (02/18/2022 11:15 AM EDT) [facility] HIV-1/2 ANTIGEN AND ANTIBODIES, 4TH GENERATION W/ REFLEX NON-REACT ISIDRO NON-REACT ISIDRO [facility] Comment: HIV-1 antigen and HIV-1/HIV-2 antibodies were not detected. There is no laboratory evidence of HIV infection. PLEASE NOTE: This information has been disclosed to you from records whose confidentiality may be protected by state law. If your state requires such protection, then the state law prohibits you from making any further disclosure of the information without the specific written consent of the person to whom it pertains, or as otherwise permitted by law. A general authorization for the release of medical or other information is NOT sufficient for this purpose. For additional information please refer to http://education.[employer].Stylehive/faq/LBU133 (This link is being provided for informational/ educational purposes only.) The performance of this assay has not been clinically validated in patients less than 2 years old. 02/18/2022 11:1 5 AM EDT us Korin Howell MD LAB BLOOD ORDERABLES Final Re sult [facility] [address] from Last 3 Months or Most Recently Relevant to Health Maintenance Insurance [facility] C3 Care Teams Mva Operator Relationship Specialty Start Date End Date Tanja Perry MD [address] [place] [id number] PCP - General Family Medicine 11/17/15 Vi Pacheco Animal TechApiculturist 09/12/23 [facility] 02/29/24
[2025-04-23 14:52] LABS: Albumin Level 4.1 g/dL (3.5-5.0); Alkaline Phosphatase 132 U/L (39-117); Anion Gap 12 (12-20); Aspartate Amino Transferase 29 U/L (5-37); Blood Urea Nitrogen 8 mg/dL (9-16); Calcium 9.6 mg/dL (8.4-10.2); Carbon Dioxide 34 mmol/L (22-29); Chloride 98 mmol/L (96-108); Cholesterol 169 mg/dL (<200); Estimated Glomerular Filt Rate > 60; HDL Cholesterol 66 mg/dL (>40); Potassium 4.1 mmol/L (3.3-5.1); Sodium 140 mmol/L (135-145); Total Protein 7.7 g/dL (6.5-8.0); Triglycerides 54 mg/dL (<150)
[2025-04-23 17:17] LABS: Alanine Aminotransferase 32 U/L (0-40)
== END 2025-04-23 10:44 | disposition home or self-care (01) ==
LOC: HO.CHCLDS 10:43
PROVIDERS: Visit Provider Student in an Organized Health Care Education/Training Program
DX: R60.0 Localized edema (principal)
CPT/HCPCS: 36415; 80048; 80061; 80076

== ENCOUNTER 2025-04-30 08:20 | Outpatient (REF) | payer MEDICAID, SELFPAY ==
--- NOTE | ~2025-04-30 | XR_ITS ---
EXAMINATION: XR KNEE, RIGHT CLINICAL INFORMATION: pain COMPARISON: None available. TECHNIQUE: Two views of the right knee. FINDINGS: Normal alignment. No acute fracture. Mild degenerative changes in the medial femorotibial compartment with mild joint space narrowing, small marginal osteophytes and subchondral sclerotic changes of the left medial tibial plateau. Small suprapatellar joint effusion. XR/XR knee RT 2V IMPRESSION: Mild degenerative change of the medial femorotibial compartment. Electronically signed by: Ramiro Briceno MD 04/30/2025 08:51 AM EDT
--- OUTSIDE RECORDS SUMMARY | 2025-04-30 09:02 | XMS_ITS | Clinical Summary ---
Author Organization [employer] Address [address] [facility] 7t [place] [address] Care Team Providers Care Bisque Finisher Name Role Phone Tanja Perry MD Primary Care Provider [phone] Allergies Active Allergy Reactions Criticality Noted Date [...] Description 04/23/2025 10:15 AM EDT Office Visit [facility] [address] [place] [address] Tanja Perry MD Primary osteoarthritis of right knee (Primary Dx); Chronic hepatitis C without hepatic coma (CMS/HCC); Bilateral leg edema; Intentional heroin overdose, subsequent encounter 04/23/2025 Results Follow-Up [facility] [address] [place] [address] Tanja Perry MD Basic Metabolic Panel, Lipid Panel, Standard, Hepatic Function Panel 04/23/2025 Travel 04/22/2025 Telephone [facility] [address] [place] [address] Tanja Perry MD Chart Prep 04/16/2025 Patient Outreach [address] [address] Tanja Perry MD Pre-visit Planning (HDF unscheduled unable to LVM ) 04/14/2025 Telephone [facility] [address] [place] [address] Tanja Perry MD PT1 03/26/2025 Telephone [facility] [address] [place] [address] Tanja Perry MD Hospital Follow-up 03/04/2025 Telephone [facility] [address] [place] [address] Tanja Perry MD Nurse Triage 02/27/2025 Telephone [facility] [address] [place] [address] Tanja Perry MD No Show 02/20/2025 Patient Outreach [address] [address] Tanja Perry MD Care Coordination ([facility] ED Follow Up) 02/19/2025 Patient Outreach [address] [address] Tanja Perry MD Pre-visit Planning (Pre visit planning unable to LVM ) 02/04/2025 Patient Outreach [address] [address] Tanja Perry MD Care Coordination ([facility]- hospital discharge follow up call) 02/03/2025 Patient Outreach [facility] [address] [place] [address] Tanja Perry MD from Last 3 Months [...] Td or Tdap) 09/01/2027 09/01/2017 Lipid Panel 04/23/2030 04/23/2025, 09/07, 10/24/2022, Additional history exists RSV Patients and Patients Aged 60 years [...] Procedure Name Priority Date/Time Associated Diagnosis Comments XR KNEE 1-2 VIEWS RIGHT Routine 04/30/2025 8:45 AM EDT Primary osteoarthritis of right knee HEPATIC FUNCTION PANEL Routine 04/23/2025 10:44 AM EDT Bilateral leg edema LIPID PANEL, STANDARD Routine 04/23/2025 10:44 AM EDT Bilateral leg edema BASIC METABOLIC PANEL Routine 04/23/2025 10:44 AM EDT Bilateral leg edema HIV 1/2 ANTIGEN/ANTIBODY, FOURTH GENERATION W/RFL Routine 02/18/2022 11:15 AM EDT from Last 3 Months or Most Recently Relevant to Health Maintenance Results * XR Knee 1-2 Views Right (04/30/2025 8:45 AM EDT) Anatomical Region Laterality Modality Lower Extremities, Knee Right [facility] 04/30/2025 8:45 AM EDT Narrative 04/30/2025 8:54 AM EDT [facility] [address] [place] [address] XRay Report Signed Patient: Chester Bryan MR#: [id number] 2 : 1970 Acct:[id number] Age/Sex: 54 / M ADM Date: 04/30/25 Loc: [facility] Attending Dr: Tanja Perry MD Ordering Physician: Tanja Perry MD Date of Service: 04/30/25 Procedure(s): XR knee RT 2V Accession Number(s): [id number] cc: Tanja Perry MD Reason for Exam: pain EXAMINATION: XR KNEE, RIGHT CLINICAL INFORMATION: pain COMPARISON: None available. TECHNIQUE: Two views of the right knee. FINDINGS: Normal alignment. No acute fracture. Mild degenerative changes in the medial femorotibial compartment with mild joint space narrowing, small marginal osteophytes and subchondral sclerotic changes of the left medial tibial plateau. Small suprapatellar joint effusion. XR/XR knee RT 2V IMPRESSION: Mild degenerative change of the medial femorotibial compartment. Electronically signed by: Ramiro Briceno MD 04/30/2025 08:51 AM EDT Dictated By: Ramiro Briceno MD Signed By: <Electronically signed by Ramiro Briceno MD in OV> 04/30/25 0851 DD/ 0845 TD/TT: 04/30/25 0846 Forestry Aid Technician: Procedure Note Donotuseinterpreter, Image - 04/30/2025 [facility] [address] [place] [address] XRay Report Signed Patient: Elba BryanR#: [id number] 2 : 1970Acct:[id number] Age/Sex: 54 / MADM Date: 04/30/25 Loc: CX Attending Dr: Tanja Perry MD Ordering Physician: Tanja Perry MD Date of Service: 04/30/25 Procedure(s): XR knee RT 2V Accession Number(s): [id number] cc: Tanja Perry MD Reason for Exam: pain EXAMINATION: XR KNEE, RIGHT CLINICAL INFORMATION: pain COMPARISON: None available. TECHNIQUE: Two views of the right knee. FINDINGS: Normal alignment. No acute fracture. Mild degenerative changes in the medial femorotibial compartment with mild joint space narrowing, small marginal osteophytes and subchondral sclerotic changes of the left medial tibial plateau. Small suprapatellar joint effusion. XR/XR knee RT 2V IMPRESSION: Mild degenerative change of the medial femorotibial compartment. Electronically signed by: Ramiro Briceno MD 04/30/2025 08:51 AM EDT RP Dictated By: Ramiro Briceno MD Signed By: <Electronically signed by Ramiro Briceno MD in OV> 04/30/25 0851 DD/ 0845 TD/TT: 04/30/25 0846 Forestry Aid Technician: Tanja Perry MD IMG XR PROCEDURES Final Result * (ABNORMAL) Hepatic Function Panel (04/23/2025 10:44 AM EDT) Bilirubin, Total 0.5 0.0 - 1.0 mg/dL [facility] Bilirubin, Direct 0.2 0.0 - 0.5 mg/dL [facility] Aspartate Amino Transferase 29 5 - 37 U/L [facility] Alanine Aminotransferase 32 0 - 40 U/L [facility] Total Protein 7.7 6.5 - 8.0 g/dL [facility] Albumin Level 4.1 3.5 - 5.0 g/dL [facility] Alkaline Phosphatase 132(H) 39 - 117 U/L [facility] Blood Venous blood specimen / Unknown 04/23/2025 10:44 AM EDT 04/23/2025 2:00 PM EDT Tanja Perry MD LAB BLOOD ORDERABLES Final Resul t [facility] [address] [place] [phone] * Lipid Panel, Standard (04/23/2025 10:44 AM EDT) Triglycerides 54 <150 mg/dL [facility] Comment:Desirable Triglyceri de: less than 150 mg/dLBorderline High Triglyceride 150-199 mg/dLHigh Triglyceride: 200-499 mg/dLVery High Triglyceride: greater than or equal to 5OO mg/dL Cholesterol 169 <200 mg/dL [facility] Comment:Desirable Cholestero l: less than 200 mg/dLBorderline High Cholesterol: 200-239 mg/dLHigh Cholesterol: greater than 239 mg/dL LDL Cholesterol Calculated 93 <100 mg/dL [facility] Comment:Desirable LDL: less than 100 mg/dLNear Optimal/Above Optimal LDL: 110- 129 mg/dLBorderline High LDL: 130-159 mg/dLHigh LDL: 160-189 mg/dLVery High LDL: greater than or equal to 190 mg/dL HDL Cholesterol 66 >40 mg/dL [facility] Comment:Desirable HDL: great er than 40 mg/dL Note: This HDL assay may give artificially low results in patients with liver disease. Blood Venous blood specimen / Unknown 04/23/2025 10:44 AM EDT 04/23/2025 2:00 PM EDT us Tanja Perry MD LAB BLOOD ORDERABLES Final Resul t [facility] [address] [place] [address] [phone] * (ABNORMAL) Basic Metabolic Panel (04/23/2025 10:44 AM EDT) Sodium 140 135 - 145 mmol/L [facility] Potassium 4.1 3.3 - 5.1 mmol/L [facility] Chloride 98 96 - 108 mmol/L [facility] Carbon Dioxide 34(H) 22 - 29 mmol/L [facility] Anion Gap 12 12 - 20 [facility] Urea Nitrogen (BUN) 8(L) 9 - 16 mg/dL [facility] Creatinine, Serum 0.64 0.5 - 1.4 mg/dL [facility] Estimated Glomerular Filt Rate >60 [facility] Comment:Chronic Kidney Disea se: Estimated GFR < 60 mL/min/1.29k1Kimnps Kidney Disease: Estimated GFR < 15 mL/min/1.73m2 Glucose 69 60 - 115 mg/dL [facility] Calcium 9.6 8.4 - 10.2 mg/dL [facility] Blood Venous blood specimen / Unknown 04/23/2025 10:44 AM EDT 04/23/2025 2:00 PM EDT us Tanja Perry MD LAB BLOOD ORDERABLES Final Resul t [facility] [address] [place] [phone] * HIV 1/2 ANTIGEN/ANTIBODY,FOURTH GENERATION W/RFL (02/18/2022 11:15 AM EDT) HIV-1/2 ANTIGEN AND ANTIBODIES, 4TH GENERATION W/ REFLEX NON-REACT ISIDRO NON-REACT ISIDRO [facility] Comment: HIV-1 antigen and HIV-1/HIV-2 [...] purpose. For additional information please refer to http://education.[employer].Bycler/faq/ZPS433 (This link is being provided for informational/ educational purposes only.) The performance of this assay has not been clinically validated in patients less than 2 years old. 02/18/2022 11:1 5 AM EDT us Korin Howell MD LAB BLOOD ORDERABLES Final Re sult [facility] [address] from Last 3 Months or Most Recently Relevant to Health Maintenance Insurance Care Teams Bisque Finisher Relationship Specialty Start Date End Date Tanja Perry MD [address] [place] [phone] PCP - General Family Medicine 11/17/15 Vi Pacheco Agricultural Produce Commission AgentLife Coach 09/12/23 [facility] 02/29/24
--- OUTSIDE RECORDS SUMMARY | 2025-04-30 09:02 | XMS_ITS | Encounter Summary ---
Author Organization [employer] Address [address] [facility] [address] 7[address] [place] [address] Care Team Providers Care Physician Office Specialist Name Role Phone Tanja Perry MD Primary Care Provider [phone] Javier Smith RN Unavailable [phone] Encounter Details Date Type Department Care Team ([facility] st Contact Info) Description 02/12/2024 Orders Only [facility] [address] [place] [address] ProviderChuck MD Social History Tobacco Use Types [...] documented as of this encounter Care Teams Physician Office Specialist Relationship Specialty Start Date End Date Tanja Perry MD [address] [place] [address] PCP - General Family Medicine 11/17/15 Javier Smith, RN [address] [place] [address] Registered Nurse Family Medicine 02/03/25 02/04/25 Vi Pacheco Night Order SelectorTelehealth Nurse Educator 09/12/23 [facility] 02/29/24 documented as of this encounter
--- OUTSIDE RECORDS SUMMARY | 2025-04-30 09:03 | XMS_ITS | Encounter Summary ---
Author Organization [employer] Address 75 [facility] 7t [place] [address] Care Team Providers Care Oracle Soa Architect Name Role Phone Tanja Perry MD Primary Care Provider Javier Smith RN Unavailable [phone] Encounter Details Date Type Department Care Team (Latest Contact Info) Description 02/18/2019 Abstract [facility] CONVERSIONS Dental, Provider, DDS Social History Tobacco [...] on filedocumented in this encounter Care Teams Oracle Soa Architect Relationship Specialty Start Date End Date Tanja Perry MD [address] [place] [address] PCP - General Family Medicine 11/17/15 Javier Smith, RN [address] [place] [address] Registered Nurse Family Medicine 02/03/25 02/04/25 Vi Pacheco Fish ProtectorNuclear Reactor Technician 09/12/23 [facility] 02/29/24 documented as of this encounter
--- OUTSIDE RECORDS SUMMARY | 2025-04-30 09:03 | XMS_ITS | Encounter Summary ---
Author Organization [employer] Address [address] [facility] 7t [place] [address] Care Team Providers Care Mri Supervisor Name Role Phone Tanja Perry MD Primary Care Provider [phone] Javier Smith RN Unavailable [phone] Reason for Visit * Reason Onset Date Comments Appointment Request 08/24/2023 Encounter Details Date Type Department Care Team ([facility] Contact Info) Description 08/24/2023 Telephone [facility] [address] [place], [place] [phone] Tanja Perry MD [address] [place] [address] Appointment Request Social History Tobacco Use Types [...] denied any concerns. Please contact pt at [phone] documented in this encounter Plan of Treatment Not on file documented as of this encounter Visit Diagnoses Not on filedocumented in this encounter Additional Health Concerns Assessment Noted Time PHQ-9 Depression Total Score: 6 10/21/19 23 9:27 AM EDT documented as of this encounter Care Teams Mri Supervisor Relationship Specialty Start Date End Date Tanja Perry MD [address] [place] [address] PCP - General Family Medicine 11/17/15 Javier Smith RN [address] [place] [address] Registered Nurse Family Medicine 02/03/25 02/04/25 Vi Pacheco Plastic Tile LayerLogging Supervisor 09/12/23 [facility] 02/29/24 documented as of this encounter
--- OUTSIDE RECORDS SUMMARY | 2025-04-30 09:03 | XMS_ITS | Encounter Summary ---
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
--- OUTSIDE RECORDS SUMMARY | 2025-04-30 09:03 | XMS_ITS | Encounter Summary ---
Author Organization [employer] Address [address] [facility] 7t [place] [address] Care Team Providers Care Health Policy Nurse Name Role Phone Tanja Perry MD Primary Care Provider [phone] Javier Smith RN Unavailable [phone] Reason for Visit * Reason Onset Date Comments Nurse Triage 06/07/2023 Encounter Details Date Type Department Care Team ([facility] st Contact Info) Description 06/07/2023 Telephone [facility] [address] [place], [place] [phone] Tanja Perry MD [address] [place] [address] Nurse Triage Social History Tobacco Use Types [...] accepted this outcome Please contact pt at [phone] documented in this encounter Plan of Treatment Not on file documented as of this encounter Visit Diagnoses Not on filedocumented in this encounter Additional Health Concerns Assessment Noted Time PHQ-9 Depression Total Score: 6 10/21/19 23 9:27 AM EDT documented as of this encounter Care Teams Health Policy Nurse Relationship Specialty Start Date End Date Tanja Perry MD [address] [place] [address] PCP - General Family Medicine 11/17/15 Javier Smith, ELIZABETH [address] [place] [address] Registered Nurse Family Medicine 02/03/25 02/04/25 Vi Pacheco Glass ArtistTow Motor Operator 09/12/23 [facility] 02/29/24 documented as of this encounter
--- OUTSIDE RECORDS SUMMARY | 2025-04-30 09:03 | XMS_ITS | Encounter Summary ---
Author Organization [employer] Address [address] [facility] 7t [place] [address] Care Team Providers Care Certified Genetic Counselor Name Role Phone Tanja Perry MD Primary Care Provider [phone] Javier Smith RN Unavailable [phone] Reason for Visit * Reason Onset Date Comments Medication Question 06/09/2023 Encounter Details Date Type Department Care Team ([facility] Contact Info) Description 06/09/2023 Telephone [facility] [address] [place], [place] [phone] Tanja Perry MD [address] [place] [address] Medication Question Social History Tobacco Use Types [...] requesting an alternative. Please contact pt at [phone] documented in this encounter Plan of Treatment Not on file documented as of this encounter Visit Diagnoses Not on filedocumented in this encounter Additional Health Concerns Assessment Noted Time PHQ-9 Depression Total Score: 6 10/21/19 23 9:27 AM EDT documented as of this encounter Care Teams Certified Genetic Counselor Relationship Specialty Start Date End Date Tanja Perry MD [address] [place] [address] PCP - General Family Medicine 11/17/15 Javier Smith, ELIZABETH [address] [place] [phone] Registered Nurse Family Medicine 02/03/25 02/04/25 Vi Pacheco Drop Hammer Pile Driver OperatorStitch Burnisher 09/12/23 [facility] 02/29/24 documented as of this encounter
--- OUTSIDE RECORDS SUMMARY | 2025-04-30 09:03 | XMS_ITS | Clinical Summary ---
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 METHOD 02/01/2025 11:16 PM [facility] Alkaline Phosphatase 195(H) 42 - 121 unit/L LAB CHEMISTRY METHOD 02/01/2025 11:16 PM [facility] Total Protein 6.6 6.0 - 8.0 g/dL LAB CHEMISTRY METHOD 02/01/2025 11:16 PM [facility] Albumin 3.2 3.2 - 5.0 g/dL LAB CHEMISTRY METHOD 02/01/2025 11:16 PM [facility] Total Bilirubin 0.3 0.0 - 1.4 mg/dL LAB CHEMISTRY METHOD 02/01/2025 11:16 PM [facility] Blood Venous blood specimen / Unknown Venipuncture / Unknown 02/01/2025 10:19 PM EDT 02/01/2025 10:40 PM EDT Miah Traore MD LAB BLOOD ORDERABLES Final Resu lt [facility] [address] [place] [address], from Last 3 Months Insurance MEDICAID - [place] Advance Directives Documents on File Type Date Recorded Patient Pawn Broker Expl anation Health Care Decision (hx) 12/08/2011 AD VILLALTA DIRECTIVE Health Care Decision (hx) 12/08/2011 AD VILLALTA DIRECTIVE Health Care Decision (hx) 12/08/2011 AD VILLALTA DIRECTIVE Health Care Decision (hx) 12/08/2011 AD VILLALTA DIRECTIVE * Full Code - Default (Latest Code Status on File) Date Activated Date Inactivated Comments 02/02/2025 12:49 AM 02/03/2025 4:52 PM This is ord er is used when code status has not been discussed with the patient, or code status is otherwise unknown/unconfirmed To update the patient's code status, place a code status order. Do not modify or discontinue any currently active code status orders. Care Teams [employer] Lead Relationship Specialty Start Date End Date Tanja Perry MD [address] [place] [address] PCP - General Family Medicine 02/03/25
== END 2025-04-30 08:21 | disposition home or self-care (01) ==
LOC: HO.HHCX 08:20
PROVIDERS: PCP Student in an Organized Health Care Education/Training Program; Visit Provider Student in an Organized Health Care Education/Training Program
DX: M19.91 Primary osteoarthritis, unspecified site (principal)
CPT/HCPCS: 73560

== ENCOUNTER → 2025-04-30 08:34 | Outpatient (BNV) | payer MEDICAID, SELFPAY | PROVIDERS: PCP Student in an Organized Health Care Education/Training Program; Visit Provider Radiology Body Imaging | DX: M17.11 Unilateral primary osteoarthritis, right knee (principal) | CPT/HCPCS: 73560 ==

== ENCOUNTER 2025-06-03 16:51 | Inpatient (IN) | payer OTHER, SELFPAY ==
--- OUTSIDE RECORDS SUMMARY | 2025-06-02 14:40 | XMS_ITS | Encounter Summary ---
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 Unknown Venipuncture / Unknown 06/02/2025 3:00 PM EDT 06/02/2025 3:16 PM EDT us Claudia ARMENDARIZ LAB BLOOD ORDERABLES Fin al Result [facility] [address] [place] [address], [place] [phone] * Salicylate level (06/02/2025 3:00 PM EDT) Salicylate Level 3.3 2.0 - 29.0 mg/dL LAB CHEMISTRY METHOD 06/02/2025 4:13 PM EDT [facility] Blood Venous blood specimen / Unknown Venipuncture / Unknown 06/02/2025 3:00 PM EDT 06/02/2025 3:16 PM EDT us Claudia ARMENDARIZ LAB BLOOD ORDERABLES Fin al Result [facility] [address] [place] [address], * (ABNORMAL) Acetaminophen level (06/02/2025 3:00 PM EDT) Acetaminophen Level <2.0(L) 10.0 - 30.0 mcg/mL LAB CHEMISTRY METHOD 06/02/2025 4:02 PM EDT [facility] Blood Venous blood specimen / Unknown Venipuncture / Unknown 06/02/2025 3:00 PM EDT 06/02/2025 3:16 PM EDT us Claudia ARMENDARIZ LAB BLOOD ORDERABLES Fin al Result [facility] [address] [place] [address], [place] [phone] * (ABNORMAL) Ethanol (06/02/2025 3:00 PM EDT) Ethanol Level 269(H) 0 - 10 mg/dL LAB CHEMISTRY METHOD 06/02/2025 4:02 PM EDT [facility] Blood Venous blood specimen / Unknown Venipuncture / Unknown 06/02/2025 3:00 PM EDT 06/02/2025 3:16 PM EDT us Claudia ARMENDARIZ LAB BLOOD ORDERABLES Errol stuart Result [facility] [address] [place] [address], * (ABNORMAL) Comprehensive metabolic panel (06/02/2025 3:00 PM EDT) Sodium 131(L) 133 - 145 mmol/L LAB CHEMISTRY METHOD 06/02/2025 4:13 PM EDT [facility] Potassium 3.7 3.5 - 5.5 mmol/L LAB CHEMISTRY METHOD 06/02/2025 4:[address] [facility] Chloride 94(L) 96 - 110 mmol/L LAB CHEMISTRY METHOD 06/02/2025 4:13 PM T [facility] CO2 29 21 - 32 mmol/L LAB CHEMISTRY METHOD 06/02/2025 4:[address] [facility] Anion Gap 8 3 - 11 LAB CHEMISTRY METHOD 06/02/2025 4:[address] [facility] Glucose 121(H) 70 - 100 mg/dL LAB CHEMISTRY METHOD 06/02/2025 4:[address] [facility] BUN 5 5 - 25 mg/dL LAB CHEMISTRY METHOD 06/02/2025 4:[address] [facility] Creatinine 0.68(L) 0.70 - 1.30 mg/dL LAB CHEMISTRY METHOD 06/02/2025 4:[address] [facility] eGFR 108 >=60 mL/min/1. 73m2 LAB CHEMISTRY METHOD 06/02/2025 4:[address] [facility] Comment:Calculation based on the Chronic Kidney Disease Epidemiology Collaboration (CKD-EPI) equation refit without adjustment for race. BUN/Creatinine Ratio 7.4 LAB CHEMISTRY METHOD 06/02/2025 4:13 PM EDT [facility] Calcium 8.9 8.5 - 10.5 mg/dL LAB CHEMISTRY METHOD 06/02/2025 4:13 PM EDT [facility] AST (SGOT) 59(H) 10 - 42 unit/L LAB CHEMISTRY METHOD 06/02/2025 4:13 PM T [facility] ALT (SGPT) 52 10 - 60 unit/L LAB CHEMISTRY METHOD 06/02/2025 4:13 PM EDT [facility] Alkaline Phosphatase 197(H) 42 - 121 unit/L LAB CHEMISTRY METHOD 06/02/2025 4:13 PM EDT [facility] Total Protein 7.6 6.0 - 8.0 g/dL LAB CHEMISTRY METHOD 06/02/2025 4:[address] [facility] Albumin 3.6 3.2 - 5.0 g/dL LAB CHEMISTRY METHOD 06/02/2025 4:13 PM T [facility] Total Bilirubin 0.8 0.0 - 1.4 mg/dL LAB CHEMISTRY METHOD 06/02/2025 4:13 PM EDT [facility] Blood Venous blood specimen / Unknown Venipuncture / Unknown 06/02/2025 3:00 PM EDT 06/02/2025 3:16 PM EDT us Claudia ARMENDARIZ LAB BLOOD ORDERABLES Fin al Result [facility] [address] [place] [address], * ECG 12 lead (06/02/2025 2:56 PM EDT) Ventricular Rate ECG 93 BPM GEMUSE Atrial Rate 93 BPM GEMUSE P-R Interval 160 ms GEMUSE QRS Duration 90 ms GEMUSE Q-T Interval 376 ms GEMUSE QTc 467 ms GEMUSE P Wave Woodruff 65 degrees GEMUSE R Woodruff 24 degrees GEMUSE T Woodruff 13 degrees GEMUSE ECG Interpretation Normal sinus rhythm Abnormal ECG When compared with ECG of 02-FEB-2025 10:01, No significant change was found Confirmed by Tati MEYER JAMES ([id number]) on 06/02/2025 4:25:18 PM GEMUSE 06/02/2025 2:56 PM EDT 06/02/2025 4:25 PM EDT Claudia ARMENDARIZ ECG ORDERABLES Final Re sult GEMUSE documented in this encounter Visit Diagnoses Diagnosis Suicidal ideation- Primary Alcohol withdrawal syndrome without complication (CMS/HCC V24, CMS/HCC V28) Opiate abuse, continuous (CMS/HCC V24, CMS/HCC V28) documented in this encounter Administered Medications Inactive Administered Medications - up to 3 most recent administrations Medication Order MAR Action Action Date Dose Rate Site acamprosate (CAMPRAL) EC tablet 666 mg 666 mg, oral, 3 times daily, First dose on Mon06/02/25 at 2114, Do not crush, chew, or split. Given 06/03/2025 2:53 PM EDT 666 mg atorvastatin (LIPITOR) tablet 40 mg 40 mg, oral, Daily, First dose on Mon06/03/25 at 0900 Given 06/03/2025 8:56 AM EDT 40 mg diazePAM (VALIUM) injection 10 mg 10 mg, intravenous, Every 1 hour PRN, for Severe Alcohol withdrawal: CIWA-Ar GREATER than or EQUAL to 19 WITHOUT evidence of seizure OR hallucinations., Starting on Mon06/02/25 at 1835, Re-assess CIWA-Ar in 1 hour. Hold dose and notify provider for BP LESS than 90/60, RR LESS than 10 per minute, marked somnolence, pooling of secretions, intoxicated symptoms (ataxia, slurred speech) Notify provider if 40 mg is given within 4 hours. Rate of administration should NOT exceed 5 mg/minute. diazePAM (VALIUM) injection 20 mg 20 mg, intravenous, Administer over 8 Minutes, Every 1 hour PRN, for Severe complicated alcohol withdrawal CIWA-Ar GREATER than or EQUAL to 19 AND seizure OR hallucinations., Starting on Mon06/02/25 at 1835, Re-assess CIWA-Ar in 1 hour. Hold dose and notify provider for BP LESS than 90/60, RR LESS than 10 per minute, marked somnolence, pooling of secretions, intoxicated symptoms (ataxia, slurred speech) Notify provider if 40 mg is given within 4 hours. Rate of administration should NOT exceed 5 mg/minute., Indications: withdrawalIndications:withdrawal diazePAM (VALIUM) injection 5 mg 5 mg, intravenous, Every 1 hour PRN, Moderate alcohol withdrawal: CIWA-Ar: 10 1 8 points, Starting on Mon06/02/25 at 1835, Re-assess CIWA-Ar in 1 hour. Hold dose and notify provider for BP LESS than 90/60, RR LESS than 10 per minute, marked somnolence, pooling of secretions, intoxicated symptoms (ataxia, slurred speech) Notify provider if 40 mg is given within 4 hours. Rate of administration should NOT exceed 5 mg/minute. folic acid (FOLVITE) tablet 1 mg 1 mg, oral, Daily, First dose on Mon06/02/25 at 1725 Given 06/02/2025 6:44 PM EDT 1 mg folic acid (FOLVITE) tablet 1 mg 1 mg, oral, Daily, First dose on Mon06/03/25 at 0900, For 246 days Given 06/03/2025 8:56 AM EDT 1 mg gabapentin (NEURONTIN) capsule 300 mg 300 mg, oral, Every 8 hours scheduled, First dose (after last modification) on Mon06/03/25 at 0345 Given 06/03/2025 2:48 PM EDT 300 mg Given 06/03/2025 3:58 AM EDT 300 mg hydrOXYzine pamoate (VISTARIL) capsule 50 mg 50 mg, oral, 3 times daily, First dose on Mon06/02/25 at 2114 Given 06/03/2025 2:48 PM EDT 50 mg Given 06/03/2025 8:56 AM EDT 50 mg Given 06/02/2025 9:46 PM EDT 50 mg magnesium oxide (MAG-OX) tablet 400 mg 400 mg, oral, Daily, First dose on Mon06/03/25 at 0900 Given 06/03/2025 8:56 AM EDT 400 mg methadone (DOLOPHINE) tablet 20 mg 20 mg, oral, Daily, First dose (after last modification) on Mon06/03/25 at 0926 Given 06/03/2025 10:22 AM EDT 20 mg methadone (METHADOSE) dispersible tablet 80 mg 80 mg, oral, Daily, First dose on Mon06/03/25 at 0926, Disperse total dose in ~120 mL of water, orange juice, or other acidic fruit beverage prior to administration; if insoluble excipients remain and do not entirely dissolve, add a small amount of liquid to cup and administer remaining mixture. Do not chew or swallow tablet before dispersing in liquid. Given 06/03/2025 10:22 AM EDT 80 mg multivitamin tablet 1 tablet 1 tablet, oral, Daily, First dose on Mon06/03/25 at 0900 Given 06/03/2025 8:56 AM EDT 1 tablet nicotine (NICODERM CQ) 21 mg/24 hr patch 1 patch 1 patch, transdermal, Administer over 24 Hours, Daily, First dose on Mon06/03/25 at 1451 Patch Applied 06/03/2025 2:53 PM EDT 1 patch Right Arm nicotine polacrilex (NICORETTE) gum 2 mg 2 mg, buccal, Every 1 hour PRN, smoking cessation, Starting on Mon06/03/25 at 1450 ondansetron (PF) (ZOFRAN) injection 4 mg 4 mg, intravenous, Once, On Mon06/03/25 at 0304, For 1 dose Given 06/03/2025 3:07 AM EDT 4 mg thiamine (VITAMIN B-1) tablet 100 mg 100 mg, oral, Daily, First dose on Mon06/02/25 at 1725 Given 06/02/2025 6:44 PM EDT 100 mg thiamine (VITAMIN B-1) tablet 100 mg 100 mg, oral, Daily, First dose on Mon06/03/25 at 0900 Given 06/03/2025 8:56 AM EDT 100 mg traZODone (DESYREL) tablet 50 mg 50 mg, oral, Nightly, First dose on Mon06/02/25 at 2114 Given 06/02/2025 9:46 PM EDT 50 mg documented in this encounter Discontinued Medications Medication Sig Discontinue Reason Start Date End Da te methadone (DOLOPHINE) 10 mg/mL concentrated solutionIndications:opio id use disorder Take 8.5 mL (85 mg total) by mouth 1 (one) time each day. Max Daily Amount: 85 mg Discontinued by another clinician 06/02/2025 documented as of this encounter Historical Medications * This list may reflect changes made after this encounter. magnesium oxide (MAG-OX) 400 mg (241.3 elemental magnesium) tablet Take 1 tablet (400 mg total) by mouth 1 (one) time each day. 02/28/2024 thiamine 100 mg tablet Take 1 tablet (100 mg total) by mouth 1 (one) time each day. 05/21/2025 Tab-A-Ana 400 mcg tablet Take 1 tablet by mouth 1 (one) time each day. 05/21/2025 traZODone (DESYREL) 50 mg tablet Take 1 tablet (50 mg total) by mouth at bedtime. added in this encounter Active and Recently Administered Medications Times are shown in EDT. Scheduled Medication Order 06/01/2025 06/02/2025 06/03/2025 acamprosate (CAMPRAL) EC tablet 666 mg 666 mg, oral, 3 times daily, First dose on Mon06/02/25 at 2114, Do not crush, chew, or split. 2222 (Not Given - Provider: Nicole Donahue RN - Reason: Other - Comment: Pt stated he hasn't been taking x 1 week. Spoke to provider, decision made to hold medication while pt is detoxing from alcohol) 1040 (Not Given - Provider: Vilma Oviedo RN - Reason: Other - Comment: hold while detoxing.)1453 (Given - Provider: Vilma Oviedo RN) atorvastatin (LIPITOR) tablet 40 mg 40 mg, oral, Daily, First dose on Mon06/03/25 at 0900 0856 (Given - Provid er: Vilma Oviedo RN) fluticasone propionate (FLONASE) 50 mcg/actuation nasal spray 2 spray 2 spray, Each Nostril, Daily, First dose on Mon06/03/25 at 0900, Shake gently. Before first use, prime pump (press 6 times until fine spray appears). After use, clean tip and replace cap. 1041 (Not Given - Provider: Vilma Oviedo RN - Reason: Patient/Resident/Agent refused - education provided ) folic acid (FOLVITE) tablet 1 mg (CANCELED) 1 mg, oral, Daily, First dose on Mon06/02/25 at 1725 1844 (Given - Provider: Una Patricio RN - Comment: bh was at bedside) folic acid (FOLVITE) tablet 1 mg 1 mg, oral, Daily, First dose on Mon06/03/25 at 0900, For 246 days 0856 (Given - Provid er: Vilma Oviedo RN) gabapentin (NEURONTIN) capsule 300 mg 300 mg, oral, Every 8 hours scheduled, First dose (after last modification) on Mon06/03/25 at 0345 0358 (Given - Provid er: Arun House RN - Comment: for alcohol withdrawal)1448 (Given - Provider: Vilma Oviedo RN) hydrOXYzine pamoate (VISTARIL) capsule 50 mg 50 mg, oral, 3 times daily, First dose on Mon06/02/25 at 2114 2146 (Given - Provider: Nicole Donahue RN) 0856 (Given - Provider: Vilma Oviedo RN)1448 (Given - Provider: Vilma Oviedo RN) magnesium oxide (MAG-OX) tablet 400 mg 400 mg, oral, Daily, First dose on Mon06/03/25 at 0900 0856 (Given - Provid er: Vilma Oviedo RN) methadone (DOLOPHINE) tablet 20 mg(Linked Group 1) 20 mg, oral, Daily, First dose (after last modification) on Mon06/03/25 at 0926 1022 (Given - Provid er: Vilma Oviedo RN) methadone (METHADOSE) dispersible tablet 80 mg(Linked Group 1) 80 mg, oral, Daily, First dose on Mon06/03/25 at 0926, Disperse total dose in ~120 mL of water, orange juice, or other acidic fruit beverage prior to administration; if insoluble excipients remain and do not entirely dissolve, add a small amount of liquid to cup and administer remaining mixture. Do not chew or swallow tablet before dispersing in liquid. 1022 (Given - Provid er: Vilma Oviedo RN) multivitamin tablet 1 tablet 1 tablet, oral, Daily, First dose on Mon06/03/25 at 0900 0856 (Given - Provid er: Vilma Oviedo RN) nicotine (NICODERM CQ) 21 mg/24 hr patch 1 patch 1 patch, transdermal, Administer over 24 Hours, Daily, First dose on Mon06/03/25 at 1451 1453 (Patch Applied - Provider: Vilma Oviedo RN)1631 (Due: Patch Removed - Provider: Automatic Discharge Provider - Comment: Time automatically adjusted from order being discontinued) ondansetron (PF) (ZOFRAN) injection 4 mg (COMPLETED) 4 mg, intravenous, Once, On Mon06/03/25 at 0304, For 1 dose 0307 (Given - Provid er: Martine Rodriguez RN) thiamine (VITAMIN B-1) tablet 100 mg (CANCELED) 100 mg, oral, Daily, First dose on Mon06/02/25 at 1725 1844 (Given - Provider: Una Patricio RN - Comment: bh as at bedside) thiamine (VITAMIN B-1) tablet 100 mg 100 mg, oral, Daily, First dose on Mon06/03/25 at 0900 0856 (Given - Provid er: Vilma Oviedo RN) traZODone (DESYREL) tablet 50 mg 50 mg, oral, Nightly, First dose on Mon06/02/25 at 2114 2146 (Given - Provider: Nicole Donahue, ELIZABETH) PRN Medication Order 06/01/2025 06/02/2025 06/03/2025 diazePAM (VALIUM) injection 10 mg(Linked Group 2) 10 mg, intravenous, Every 1 hour PRN, for Severe Alcohol withdrawal: CIWA-Ar GREATER than or EQUAL to 19 WITHOUT evidence of seizure OR hallucinations., Starting on Mon06/02/25 at 1835, Re-assess CIWA-Ar in 1 hour. Hold dose and notify provider for BP LESS than 90/60, RR LESS than 10 per minute, marked somnolence, pooling of secretions, intoxicated symptoms (ataxia, slurred speech) Notify provider if 40 mg is given within 4 hours. Rate of administration should NOT exceed 5 mg/minute. diazePAM (VALIUM) injection 20 mg(Linked Group 2) 20 mg, intravenous, Administer over 8 Minutes, Every 1 hour PRN, for Severe complicated alcohol withdrawal CIWA-Ar GREATER than or EQUAL to 19 AND seizure OR hallucinations., Starting on Mon06/02/25 at 1835, Re-assess CIWA-Ar in 1 hour. Hold dose and notify provider for BP LESS than 90/60, RR LESS than 10 per minute, marked somnolence, pooling of secretions, intoxicated symptoms (ataxia, slurred speech) Notify provider if 40 mg is given within 4 hours. Rate of administration should NOT exceed 5 mg/minute., Indications: withdrawal diazePAM (VALIUM) injection 5 mg(Linked Group 2) 5 mg, intravenous, Every 1 hour PRN, Moderate alcohol withdrawal: CIWA-Ar: 10 1 8 points, Starting on Mon06/02/25 at 1835, Re-assess CIWA-Ar in 1 hour. Hold dose and notify provider for BP LESS than 90/60, RR LESS than 10 per minute, marked somnolence, pooling of secretions, intoxicated symptoms (ataxia, slurred speech) Notify provider if 40 mg is given within 4 hours. Rate of administration should NOT exceed 5 mg/minute. nicotine polacrilex (NICORETTE) gum 2 mg 2 mg, buccal, Every 1 hour PRN, smoking cessation, Starting on Mon06/03/25 at 1450 Linked Groups Order Group 1: methadone (DOLOPHINE) tablet 20 mgJump to med 20 mg, oral, Daily, First dose (after last modification) on Mon06/03/25 at 0926 And methadone (METHADOSE) dispersible tablet 80 mgJump to med 80 mg, oral, Daily, First dose on Mon06/03/25 at 0926, Disperse total dose in ~120 mL of water, orange juice, or other acidic fruit beverage prior to administration; if insoluble excipients remain and do not entirely dissolve, add a small amount of liquid to cup and administer remaining mixture. Do not chew or swallow tablet before dispersing in liquid. Group 2: diazePAM (VALIUM) injection 5 mgJump to med 5 mg, intravenous, Every 1 hour PRN, Moderate alcohol withdrawal: CIWA-Ar: 10 1 8 points, Starting on Mon06/02/25 at 1835, Re-assess CIWA-Ar in 1 hour. Hold dose and notify provider for BP LESS than 90/60, RR LESS than 10 per minute, marked somnolence, pooling of secretions, intoxicated symptoms (ataxia, slurred speech) Notify provider if 40 mg is given within 4 hours. Rate of administration should NOT exceed 5 mg/minute. Or diazePAM (VALIUM) injection 10 mgJump to med 10 mg, intravenous, Every 1 hour PRN, for Severe Alcohol withdrawal: CIWA-Ar GREATER than or EQUAL to 19 WITHOUT evidence of seizure OR hallucinations., Starting on Mon06/02/25 at 1835, Re-assess CIWA-Ar in 1 hour. Hold dose and notify provider for BP LESS than 90/60, RR LESS than 10 per minute, marked somnolence, pooling of secretions, intoxicated symptoms (ataxia, slurred speech) Notify provider if 40 mg is given within 4 hours. Rate of administration should NOT exceed 5 mg/minute. Or diazePAM (VALIUM) injection 20 mgJump to med 20 mg, intravenous, Administer over 8 Minutes, Every 1 hour PRN, for Severe complicated alcohol withdrawal CIWA-Ar GREATER than or EQUAL to 19 AND seizure OR hallucinations., Starting on Mon06/02/25 at 1835, Re-assess CIWA-Ar in 1 hour. Hold dose and notify provider for BP LESS than 90/60, RR LESS than 10 per minute, marked somnolence, pooling of secretions, intoxicated symptoms (ataxia, slurred speech) Notify provider if 40 mg is given within 4 hours. Rate of administration should NOT exceed 5 mg/minute., Indications: withdrawal documented in this encounter Orders Medications Ordered That Harjinder ht Not Have Been Administered Count Last Ordered Date First Ordered Date gabapentin (NEURONTIN) capsule 300 mg 1 methadone (DOLOPHINE) tablet 100 mg 2 06/03 nicotine polacrilex (NICORETTE) gum 2 mg 1 06/03/2025 diazePAM (VALIUM) injection 10 mg 3 025 diazePAM (VALIUM) injection 20 mg 1 025 diazePAM (VALIUM) injection 5 mg 2 06/02/20 25 fluticasone propionate (FLON ASE) 50 mcg/actuation nasal spray 2 spray 1 06/02/2025 paliperidone palmitate (INVE GA SUSTENNA) injection 156 mg 1 06/02/2025 Nursing Count Last Ordered Date First Orde red Date NURSING GENERAL ASSESSMENTS AND INTERVENTIONS 1 06/02/2025 Consult Count Last Ordered Date First Orde red Date IP CONSULT TO HAT LACER 1 06/02/2025 documented in this encounter Care Teams Rn Cardiovascular Relationship Specialty Start Date End Date Tanja Perry MD [address] [place] [address] PCP - General Family Medicine 02/03/25 documented as of this encounter
[2025-06-03 17:16] VITALS: BMI 29.4
[2025-06-03 17:17] VITALS: BP 131/62; PULSE 106; RESP 18; TEMP 37.9; O2SAT 93
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
[2025-06-03] MEDS: Flu Vacc TS2025-26(6mo up)/PF 0.5 ML SYRINGE IM (19:22)
--- NOTE | 2025-06-03 19:32 | HE.PHANOTE ---
Methadone verified [facility] 100 mg last dose 06/03/25@4624
[2025-06-03 19:55] VITALS: BP 118/67; PULSE 108; RESP 16; TEMP 37.3; O2SAT 95
--- OUTSIDE RECORDS SUMMARY | 2025-06-03 20:15 | XMS_ITS | Encounter Summary ---
Author Organization [employer] Address [address] [place] [address] Care Team Providers Care Arc And Gas Welder Name Role Phone Tanja Perry MD Primary Care Provider [phone] Javier Smith RN Unavailable [phone] Alia Taylor Unavailable Encounter Details Date Type Department Care Team (Late st Contact Info) Description 02/12/2024 Orders Only [facility] [address] [place], [place] [id number] Provider, MD Chuck Social History Tobacco Use Types Packs/Day Years [...] Head, Neck Computed Tomogra phy Historical Provider IMG CT PROCEDURES Final R esult * CT SOFT TISSUE NECK W CONTRAST (02/11/2024 9:15 AM EDT) Anatomical Region Laterality Modality Computed Tomogra phy Historical Provider IMG CT PROCEDURES Final R esult * CT Abdomen Pelvis w/ Contrast (02/11/2024 9:13 AM EDT) Anatomical Region Laterality Modality Body, Pelvis, Abdomen Computed T omography Historical Provider IMG CT PROCEDURES Final R esult documented in this encounter Visit Diagnoses Not on filedocumented in this encounter Additional Health Concerns Assessment Noted Time PHQ-9 Depression Total Score: 6 10/21/19 23 9:27 AM EDT documented as of this encounter Care Teams Arc And Gas Welder Relationship Specialty Start Date End Date Tanja Perry MD [address] [place] [id number] PCP - General Family Medicine 11/17/15 Javier Smith, RN [address] [place] [id number] Registered Nurse Family Medicine 02/03/25 02/04/25 Alai Taylor 06/03/25 Vi Pacheco Wire Brush MakerMailing Section Clerk 09/12/23 [facility] 02/29/24 documented as of this encounter
--- OUTSIDE RECORDS SUMMARY | 2025-06-03 20:15 | XMS_ITS | Clinical Summary ---
Author Organization [employer] Address [address] [facility] [address] [place] [address] Care Team Providers Care Ear Mold Laboratory Technician Name Role Phone Tanja Perry MD Primary Care Provider [phone] Alia Taylor Unavailable Allergies Active Allergy Reactions Criticality Noted Date [...] repeat x1 dose if needed in 2hrs Active methadone (Methadose) 40 MG dispersible tablet Take 85 mg by mouth 1 (one) time each day. 022 Active vardenafil (Levitra) 10 MG tabletIndications :Other male erectile dysfunction TAKE 1 TABLET 1 HOUR BEFORE SEXUAL RELATIONS ONCE DAILY NEEDED. 10 tablet 023 Active fluticasone (Flonase Allergy Relief) 50 MCG/ACT nasal sprayIndications: Mild asthma without complication, unspecified whether persistent Administer 2 sprays into each nostril in the morning. Inhale 2 spray by intranasal route every day in each nostril 16 g 11 024 Active nicotine (Nicoderm CQ) 7 MG/24HR patch Place 1 patch on the skin 1 (one) time each day at the same time. 30 patch 3 024 Active albuterol 108 (90 Base) MCG/ACT inhalerIndication s:Mild intermittent asthma without complication Inhale 2 puffs every 4 (four) hours if needed for wheezing. 18 g 2 Active magnesium oxide (Mag-Ox) 400 (240 Mg) MG tablet Take 1 tablet by mouth Once per day. Active Invega Sustenna 156 MG/ML suspension prefilled syringe Inject into the muscle every 30 (thirty) days. Active hydrOXYzine pamoate (Vistaril) 50 MG capsule Take 1 capsule by mouth 3 times daily. Active mirtazapine (Remeron) 45 MG tablet Take 1 tablet by mouth at bedtime. Active ibuprofen 400 MG tablet Take 1 tablet (400 mg) by mouth every 6 (six) hours. Take 1 tablet by oral route every 6-8 hours as needed 60 tablet Active permethrin (Elimite) 5 % cream apply to skin from hairline to toes and wash off 8-10 hours later 60 g 024 Active bacitracin-polymy jonelle b (Polysporin) ointment Apply topically 2 times daily. 15 g 3 Active atorvastatin (Lipitor) 40 MG tabletIndications :Hyperlipidemia, unspecified hyperlipidemia type Take 1 tablet by mouth every day 90 tablet 2 Active atorvastatin (Lipitor) 40 MG tabletIndications :Hyperlipidemia, unspecified hyperlipidemia type Take 1 tablet by mouth every day 90 tablet 1 025 2024 Discontinued(R eorder (will not trigger notification to Pharmacy)) Active Problems Problem Noted Date Diagnosed Date Rash and nonspecific skin eruption 04/29/2024 Assessment & Plan (04/29/2024 11:46 AM EDT): Prescribing Ibuprofen, Ivermectin, Mupirocin, and Permethrin for Sx. 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 [address] [place] [address] Tanja Perry MD Care Coordination (CP Care Coordination Chart review) 06/03/[address] [facility] [address] [place] [address] Tanja Perry MD Care Coordination ([facility] ED Follow Up) 06/03/[address] [facility] [address] [place] [address] Chuck House MD 06/03/2025 Patient Outreach [address] [address] Tanja Perry MD 05/13/[address] [facility] [address] [place] [address] Tanja Perry MD Hyperlipidemia, unspecified hyperlipidemia type 04/23/2025 10:15 AM EDT Office Visit [facility] [address] [place] [address] Tanja Perry MD Primary osteoarthritis of right knee (Primary Dx); Chronic hepatitis C without hepatic coma (CMS/HCC); Bilateral leg edema; Intentional heroin overdose, subsequent encounter 04/23/2025 Results Follow-Up [facility] [address] [place] [address] Tanja Perry MD Basic Metabolic Panel, Lipid Panel, Standard, Hepatic Function Panel, XR Knee 1-2 Views Right 04/23/2025 Travel 04/22/[address] [facility] [address] [place] [address] Tanja Perry MD Chart Prep 04/16/2025 Patient Outreach [address] [address] Tanja Perry MD Pre-visit Planning (HDF unscheduled unable to LVM ) 04/14/[address] [facility] [address] [place] [address] Tanja Perry MD PT1 03/26/[address] [facility] [address] [place] [address] Tanja Perry MD Hospital Follow-up 03/04/[address] [facility] [address] [facility] [place] [address] Tanja Perry MD Nurse Triage from Last 3 Months Immunizations Immunization Administration [...] 12/24/2021 SDOH Screening 03/05/2025 03/05/2024 COVID-19 Vaccine ( - season) 2025 09/24/2021, 01/12/2021, 12/15/2020 Influenza Vaccine (#1) 2025 , 09/14/2023, 08/12/2022, Additional history exists Alcohol/Substance Use Screening 04/23/2026 04/23/2025 Depression Screening 04/23/2026 04/23/2025, 04/23/20 Disability Screening 04/23/2026 04/23/2025 Tobacco Screening 04/23/2026 [...] Procedure Name Priority Date/Time Associated Diagnosis Comments ECG 12-LEAD Routine 06/02/2025 10:19 AM EDT XR KNEE 1-2 VIEWS RIGHT Routine 04/30/2025 [...] Recently Relevant to Health Maintenance Results * ECG 12 lead (06/02/2025 10:19 AM EDT) us Historical Provider ECG ORDERABLES Final Res ult * XR Knee 1-2 Views Right (04/30/2025 8:45 AM EDT) Anatomical Region Laterality Modality Lower Extremities, Knee Right Radiogra phic Imaging 04/30/2025 8:45 AM EDT Narrative 04/30/2025 8:54 AM EDT [address] [address] XRay Report Signed Patient: Chester Bryan MR#: [id number] 2 : 1970 Acct:[id number] Age/Sex: 54 / M ADM Date: 04/30/25 Loc: .[facility] Attending Dr: Tanja Perry MD Ordering Physician: Tanja Perry MD Date of Service: 04/30/25 Procedure(s): XR knee RT 2V Accession Number(s): [id number] cc: Tanja Perry MD Reason for Exam: [...] 04/30/25 0851 DD/ 0845 TD/TT: 04/30/25 0846 Route Jumper: Procedure Note Akinter, Image - 04/30/2025 [facility] [address] [place] [address] XRay Report Signed Patient: Gagan Bryan#: [id number] 2 : 1970Acct:[id number] Age/Sex: 54 / MADM Date: 04/30/25 Loc: .[facility] Attending Dr: Tanja Perry MD Ordering Physician: Tanja Perry MD Date of Service: 04/30/25 Procedure(s): XR knee RT 2V Accession Number(s): [id number] cc: Tanja Perry MD Reason for Exam: [...] 04/30/25 0851 DD/ 0845 TD/TT: 04/30/25 0846 Route Jumper: us Tanja Perry MD IMG XR PROCEDURES Final Result * (ABNORMAL) Hepatic Function Panel (04/23/2025 10:44 AM EDT) Bilirubin, Total 0.5 0.0 - 1.0 mg/dL [facility] Bilirubin, Direct 0.2 0.0 - 0.5 mg/dL [facility] Aspartate Amino Transferase 29 5 - 37 U/L [facility] Alanine Aminotransferase 32 0 - 40 U/L [facility] Total Protein 7.7 6.5 - 8.0 g/dL [facility] Albumin Level 4.1 3.5 - 5.0 g/dL [facility] Alkaline Phosphatase 132(H) 39 - 117 U/L [facility] Blood Venous blood specimen / Unknown 04/23/2025 10:44 AM EDT 04/23/2025 2:00 PM EDT us Tanja Perry MD LAB BLOOD ORDERABLES Final Resul t Performing Organization Address City/[facility]/ZIP Co de Phone Number [facility] [address] [place], [place] [phone] * Lipid Panel, Standard (04/23/2025 10:44 AM EDT) Triglycerides 54 <150 mg/dL [facility] Comment:Desirable Triglyceri de: less than 150 mg/dLBorderline High Triglyceride 150-199 mg/dLHigh Triglyceride: 200-499 mg/dLVery High Triglyceride: greater than or equal to 5OO mg/dL Cholesterol 169 <200 mg/dL [facility] Comment:Desirable Cholestero l: less than 200 mg/dLBorderline High Cholesterol: 200-239 mg/dLHigh Cholesterol: greater than 239 mg/dL LDL Cholesterol Calculated 93 <100 mg/dL [facility] Comment:Desirable LDL: less than 100 mg/dLNear Optimal/Above Optimal LDL: 110- 129 mg/dLBorderline High LDL: 130-159 mg/dLHigh LDL: 160-189 mg/dLVery High LDL: greater than or equal to 190 mg/dL HDL Cholesterol 66 >40 mg/dL [facility] Comment:Desirable HDL: great er than 40 mg/dL Note: This HDL assay may give artificially low results in patients with liver disease. Blood Venous blood specimen / Unknown 04/23/2025 10:44 AM EDT 04/23/2025 2:00 PM EDT us Tanja Perry MD LAB BLOOD ORDERABLES Final Resul t [facility] [address] [place] [address] [phone] * (ABNORMAL) Basic Metabolic Panel (04/23/2025 10:44 AM EDT) Sodium 140 135 - 145 mmol/L [facility] Potassium 4.1 3.3 - 5.1 mmol/L [facility] Chloride 98 96 - 108 mmol/L [facility] Carbon Dioxide 34(H) 22 - 29 mmol/L [facility] Anion Gap 12 12 - 20 [facility] Urea Nitrogen (BUN) 8(L) 9 - 16 mg/dL [facility] Creatinine, Serum 0.64 0.5 - 1.4 mg/dL [facility] Estimated Glomerular Filt Rate >60 [facility] Comment:Chronic Kidney Disea se: Estimated GFR < 60 mL/min/1.02z5Ccarqt Kidney Disease: Estimated GFR < 15 mL/min/1.73m2 Glucose 69 60 - 115 mg/dL [facility] Calcium 9.6 8.4 - 10.2 mg/dL [facility] Blood Venous blood specimen / Unknown 04/23/2025 10:44 AM EDT 04/23/2025 2:00 PM EDT us Tanja Perry MD LAB BLOOD ORDERABLES Final Resul t [facility] [address] [place] [phone] [phone] * HIV 1/2 ANTIGEN/ANTIBODY,FOURTH GENERATION W/RFL (02/18/2022 11:15 AM EDT) HIV-1/2 ANTIGEN AND ANTIBODIES, 4TH GENERATION W/ REFLEX NON-REACT [facility] Comment: HIV-1 antigen and HIV-1/HIV-2 [...] purpose. For additional information please refer to http://education.Builk/faq/HWZ165 (This link is being provided for informational/ educational purposes only.) The performance of this assay has not been clinically validated in patients less than 2 years old. 02/18/2022 11:1 5 AM EDT us Korin Howell MD LAB BLOOD ORDERABLES Final Re sult [facility] [address] from Last 3 Months or Most Recently Relevant to Health Maintenance Insurance [facility] C3 Care Teams Ear Mold Laboratory Technician Relationship Specialty Start Date End Date Tanja Perry MD [address] [place] [address] PCP - General Family Medicine 11/17/15 Alia Taylor 06/03/25 [employer] Pul[employer] Mortising Machine OperatorAssembler Handbags 09/12/23 [facility] 02/29/24
--- OUTSIDE RECORDS SUMMARY | 2025-06-03 20:15 | XMS_ITS | Encounter Summary ---
Author Organization [employer] Address [address] [facility] [address] [place] [address] Care Team Providers Care Commercial Crabber Name Role Phone Tanja Perry MD Primary Care Provider [phone] Javier Smith RN Unavailable [phone] Alia Taylor Unavailable Encounter Details Date Type Department Care Team (Latest Contact Info) Description 02/18/2019 Abstract [facility] CONVERSIONS Dental, Provider, DDS Social History [...] on filedocumented in this encounter Care Teams Commercial Crabber Relationship Specialty Start Date End Date Tanja Perry MD [address] [place] [address] PCP - General Family Medicine 11/17/15 Javier Smith, RN [address] [place] [phone] Registered Nurse Family Medicine 02/03/25 02/04/25 Aila Taylor 06/03/25 [employer] InstructorTank Hoop Bender 09/12/23 [facility] 02/29/24 documented as of this encounter
--- OUTSIDE RECORDS SUMMARY | 2025-06-03 20:15 | XMS_ITS | Clinical Summary ---
Author Organization [facility] [place] [address] Phone Care Team Providers Care Bleach Tester Name Role Phone Tanja Perry MD Primary Care Provider [phone] Allergies Active Allergy Reactions Criticality Noted Date Comments Penicillins Anaphylaxis High 09/20/2024 Medications acamprosate (CAMPRAL) 333 mg EC tablet Take 2 tablets (666 mg total) by mouth 3 (three) times a day. 01/07/20 25 Active atorvastatin (LIPITOR) 40 mg tablet Take 1 tablet (40 mg total) by mouth 1 (one) time each day. 11/06/19 25 Active hydrOXYzine pamoate (VISTARIL) 50 mg capsule Take 1 capsule (50 mg total) by mouth 3 times daily. 02/01/20 24 Active Invega Sustenna 156 mg/mL syringe Inject 1 mL (156 mg total) into the shoulder, thigh, or buttocks every 30 (thirty) days. 02/14/20 24 Active folic acid (FOLVITE) 1 mg tablet Take 1 tablet (1 mg total) by mouth 1 (one) time each day. 30 each 02/05/20 25 026 Active fluticasone propionate (FLONASE) 50 mcg/actuation nasal spray Administer 2 sprays into each nostril 1 (one) time each day. Shake gently. Before first use, prime pump. After use, clean tip and replace cap. 16 g 02/05/20 25 026 Active nystatin-triamci nolone (MYCOLOG II) cream Apply topically 2 (two) times a day. Apply to affected area daily 15 g 1 02/20/20 Active traZODone (DESYREL) 50 mg tablet Take 1 tablet (50 mg total) by mouth at bedtime. Active Tab-A-Ana 400 mcg tablet Take 1 tablet by mouth 1 (one) time each day. 05/21/20 Active thiamine 100 mg tablet Take 1 tablet (100 mg total) by mouth 1 (one) time each day. 05/21/20 Active magnesium oxide (MAG-OX) 400 mg (241.3 elemental magnesium) tablet Take 1 tablet (400 mg total) by mouth 1 (one) time each day. 02/28/20 24 Active methadone (DOLOPHINE) 10 mg/mL concentrated solutionIndicati ons:opioid use disorder Take 8.5 mL (85 mg total) by mouth 1 (one) time each day. Max Daily Amount: 85 mg 025 Discontinu ed(Discont inued by another clinician) Active Problems Problem Noted Date Diagnosed Date Sinus bradycardia 02/03/2025 Metabolic encephalopathy 02/02/2025 Encounters Date Type Department Care Team Description 06/02/2025 2:40 PM EDT - 06/03/2025 4:31 PM EDT Emergency [facility] Emergency [address] [place] [address] Kenneth Liang MD Ziebro, John, MD Gordon, Ruth, MD Goebel, Mathew, MD Suicidal ideation (Primary Dx); Alcohol withdrawal syndrome without complication ([facility] V24, [facility] V28); Opiate abuse, continuous ([facility] V24, [facility] V28) Discharge Disposition: Psychiatric Hospital from Last 3 Months Medical History Medical [...] Mass Index 29.76 06/02/2025 2:47 PM EDT Plan of Treatment Health Maintenance Due Date Last Done Comments Colorectal Cancer Screening: Colonoscopy 1968 Hepatitis A Vaccines (1 of 2 - Risk 2-dose series) 1987 Hepatitis B Vaccines (1 of 3 - 19+ 3-dose series) 1987 Pneumococcal Vaccine: 50+ Years (1 of 2 - PCV) 1987 RSV Immunization Adult Patients (1 - Risk 50-74 years 1-dose series) 2018 Zoster Vaccines (2 of 2) 02/18/2022 12/24/2021 Hepatitis C Screening 07/10/2022 Social Influencers of Health Screening 07/10/2022 Depression Screening 08/07/2024 COVID-19 Vaccine ( - season) 2025 09/24/2021, 01/12/2021, 12/15/2020 Influenza Vaccine (#1) 2025 , 09/14/2023, 08/12/2022, Additional history exists DTaP,Tdap,and Td Vaccines (2 - Td or Tdap) 09/01/2027 09/01/2017 Cholesterol Screening (Lipid Panel) 04/23/2030 04/23/2025, 09/21/2023 HIV Screening Completed 02/18/2022 HIB Vaccines [...] METABOLIC PANEL STAT 06/03/2025 10:08 AM EDT METHADONE SCREEN, URINE STAT 06/02/2025 3:05 PM EDT PHENCYCLIDINE, URINE STAT 06/02/2025 3:05 PM EDT BUPRENORPHINE SCREEN, URINE STAT 06/02/2025 3:05 PM EDT DRUG ABUSE SCREEN 8A PANEL, URINE STAT 06/02/2025 3:05 PM EDT CBC WITH AUTO DIFFERENTIAL STAT 06/02/2025 3:00 PM EDT SALICYLATE LEVEL STAT 06/02/2025 3:00 PM EDT ACETAMINOPHEN LEVEL STAT 06/02/2025 3 :00 PM EDT ETHANOL STAT 06/02/2025 3:00 PM EDT COMPREHENSIVE METABOLIC PANEL STAT 06/02/2025 3:00 PM EDT CBC AND DIFFERENTIAL STAT 06/02/2025 3:00 PM EDT ECG 12-LEAD STAT 06/02/2025 2:56 PM EDT from Last 3 Months Results * (ABNORMAL) Basic Metabolic Panel (BMP) (06/03/2025 10:08 AM EDT) Sodium 135 133 - 145 mmol/L LAB CHEMISTRY METHOD 06/03/2025 11:22 AM [facility] Potassium 3.8 3.5 - 5.5 mmol/L LAB CHEMISTRY METHOD 06/03/2025 11:22 AM [facility] Chloride 98 96 - 110 mmol/L LAB CHEMISTRY METHOD 06/03/2025 11:22 AM [facility] CO2 34(H) 21 - 32 mmol/L LAB CHEMISTRY METHOD 06/03/2025 11:22 AM [facility] Anion Gap 3 3 - 11 LAB CHEMISTRY METHOD 06/03/2025 11:22 AM [facility] Glucose 128(H) 70 - 100 mg/dL LAB CHEMISTRY METHOD 06/03/2025 11:22 AM [facility] BUN 6 5 - 25 mg/dL LAB CHEMISTRY METHOD 06/03/2025 11:22 AM [facility] Creatinine 0.66(L) 0.70 - 1.30 mg/dL LAB CHEMISTRY METHOD 06/03/2025 11:22 AM [facility] eGFR 109 >=60 mL/min/1. 73m2 LAB CHEMISTRY METHOD 06/03/2025 11:22 AM [facility] Comment:Calculation based on the Chronic Kidney Disease Epidemiology Collaboration (CKD-EPI) equation refit without adjustment for race. BUN/Creatinine Ratio 9.1 LAB CHEMISTRY METHOD 06/03/2025 11:22 AM [facility] Calcium 8.8 8.5 - 10.5 mg/dL LAB CHEMISTRY METHOD 06/03/2025 11:22 AM [facility] Blood Venous blood specimen / Unknown Venipuncture / Unknown 06/03/2025 10:08 AM EDT 06/03/2025 10:49 AM EDT us Tarik Mancera MD LAB BLOOD ORDERABLES Final Resu lt [facility] [address] [place] [address], * (ABNORMAL) Drug abuse screen 8a panel, urine (06/02/2025 3:05 PM EDT) Amphetamine Screen, Ur Negative Negative LAB CHEMISTRY METHOD 4:47 PM EDT [facility] Comment:Certain OTC medicati ons containing ephedrine, phenylephrine, pseudoephedrine and phenylpropanolamine can cause false positive results. Barbiturate Screen, Ur Negative Negative LAB CHEMISTRY METHOD 5 4:47 PM EDT [facility] Benzodiazepine Screen, Ur Negative Negative LAB CHEMISTRY METHOD 4:47 PM EDT [facility] Cocaine Screen, Ur Negative Negative LAB CHEMISTRY METHOD 5 4:47 PM EDT [facility] Opiate Screen, Ur Positive(A ) Negative LAB CHEMISTRY METHOD 4:47 PM EDT [facility] Cannabinoid (THC) Screen, Ur Negative Negative LAB CHEMISTRY METHOD 4:47 PM EDT [facility] Comment:Specimens from patie nts taking pantoprazole sodium (Protonix) have been shown to produce false positive results. Oxycodone Screen, Ur Negative Negative LAB CHEMISTRY METHOD 5 4:47 PM EDT [facility] Fentanyl, Ur Positive(A ) Negative LAB CHEMISTRY METHOD 4:47 PM EDT [facility] Urine Urine specimen obtained by clean catch procedure / Unknown Non-blood Collection / Unknown 06/02/2025 3:05 PM EDT 06/02/2025 3:18 PM EDT Narrative [facility] - 06/02/2025 4:47 PM EDT Assay cutoffs: Amphetamines 1000 ng/mL Barbiturates 200 ng/mL Benzodiazepines 200 ng/mL Cocaine 300 ng/mL Fentanyl 1 ng/mL Opiates 300 ng/mL Oxycodone 100 ng/mL THC 50 ng/mL Semi-quantitative assay for screening purposes only. Unconfirmed screening result should not be used for non-medical purposes. *ALTERNATE METHOD CONFIRMATION DONE UPON REQUEST ONLY* [facility] [place] LAB URINE ORDERABLES Fin al Result Performing Organization Address [facility] de Phone Number [facility] [address] [place] [address], [place] [phone] * Buprenorphine screen, urine (06/02/2025 3:05 PM EDT) [facility] Buprenorphine Screen Urine Negative Negative LAB CHEMISTRY METHOD 06/02/2025 4:24 PM EDT [facility] Urine Urine specimen obtained by clean catch procedure / Unknown Non-blood Collection / Unknown 06/02/2025 3:05 PM EDT 06/02/2025 3:18 PM EDT Narrative [facility] - 06/02/2025 4:24 PM EDT Assay cutoff 5 ng/mL Semi-quantitative assay for screening purposes only. Unconfirmed screening result should not be used for non-medical purposes. *ALTERNATE METHOD CONFIRMATION DONE UPON REQUEST ONLY* [facility] [place] LAB URINE ORDERABLES Fin al Result Performing Organization Address [facility] de Phone Number [facility] [address] [place] [address], [place] [phone] * (ABNORMAL) Methadone, urine (06/02/2025 3:05 PM EDT) [facility] Methadone Screen, Urine Positive (A) Negative LAB CHEMISTRY METHOD 06/02/2025 4:24 PM EDT [facility] Comment: Assay cutoff 300 ng/mL Semi-quantitative assay for screening purposes only. Unconfirmed screening result should not be used for non-medical purposes. *ALTERNATE METHOD CONFIRMATION DONE UPON REQUEST ONLY* Urine Urine specimen obtained by clean catch procedure / Unknown Non-blood Collection / Unknown 06/02/2025 3:05 PM EDT 06/02/2025 3:18 PM EDT Claudia Blackmoncaren [place] LAB URINE ORDERABLES Fin al Result Performing Organization Address [facility]/ZIP Co de Phone Number [facility] [address] [place] [address], [place] [phone] * Phencyclidine, urine (06/02/2025 3:05 PM EDT) PCP Scrn, Ur Negative Negative LAB CHEMISTRY METHOD 06/02/2025 4:24 PM EDT [facility] Comment: Assay cutoff 25 ng/mL Semi-quantitative assay for screening purposes only. Unconfirmed screening result should not be used for non-medical purposes. *ALTERNATE METHOD CONFIRMATION DONE UPON REQUEST ONLY* Urine Urine specimen obtained by clean catch procedure / Unknown Non-blood Collection / Unknown 06/02/2025 3:05 PM EDT 06/02/2025 3:18 PM EDT [facility] URINE ORDERABLES Fin al Result Performing Organization Address [facility] Co de Phone Number [facility] [address] [place] [address], * (ABNORMAL) CBC auto differential (06/02/2025 3:00 PM EDT) WBC 7.4 4.8 - 10.8 K/mcL LAB HEMETOLOGY METHOD 06/02/2025 4:09 PM EDT [facility] RBC 4.70 4.50 - 5.50 M/mcL LAB HEMETOLOGY METHOD 06/02/2025 4:09 PM EDT [facility] Hemoglobin 12.1(L) 13.5 - 17.5 g/dL LAB HEMETOLOGY METHOD 06/02/2025 4:09 PM [facility] Hematocrit 37.2(L) 42.0 - 54.0 % LAB HEMETOLOGY METHOD 06/02/2025 4:[facility] MCV 79.7 79.0 - 98.0 FL LAB HEMETOLOGY METHOD 06/02/2025 4:09 PM [facility] MCH 25.9(L) 27.0 - 32.0 pcg LAB HEMETOLOGY METHOD 06/02/2025 4:09 [facility] MCHC 32.5 32.0 - 37.0 g/dL LAB HEMETOLOGY METHOD 06/02/2025 4:09 PM [facility] RDW 16.9(H) 11.0 - 15.0 % LAB HEMETOLOGY METHOD 06/02/2025 4:09 PM [facility] Platelets 71(L) 130 - 400 K/mcL LAB HEMETOLOGY METHOD 06/02/2025 4:09 PM [facility] Comment:reviewed by slide MATTHEW LAB HEMETOLOGY METHOD 06/02/2025 4:09 PM [facility] Comment:Not Measured NRBC 0.0 <1.0 % LAB HEMETOLOGY METHOD 06/02/2025 4:09 PM [facility] NRBC Absolute 0.00 <0.10 K/mcL LAB HEMETOLOGY METHOD 06/02/2025 4:09 PM [facility] Neutrophils Relative 54.0 % LAB HEMETOLOGY METHOD 06/02/2025 4:09 PM [facility] Lymphocytes Relative 38.5 % LAB HEMETOLOGY METHOD 06/02/2025 4:09 PM [facility] Monocytes Relative 5.8 % LAB HEMETOLOGY METHOD 06/02/2025 4:09 PM [facility] Eosinophils Relative 1.1 % LAB HEMETOLOGY METHOD 06/02/2025 4:09 PM EDT [facility] Basophils Relative 0.5 % LAB HEMETOLOGY METHOD 06/02/2025 4:09 PM EDT [facility] Immature Granulocytes Relative 0.1 % LAB HEMETOLOGY METHOD 06/02/2025 4:09 PM EDT [facility] Neutrophils Absolute 3.97 1.50 - 7.00 K/mcL LAB HEMETOLOGY METHOD 06/02/2025 4:09 PM EDT [facility] Lymphocytes Absolute 2.84 1.00 - 5.00 K/mcL LAB HEMETOLOGY METHOD 06/02/2025 4:09 PM EDT [facility] Monocytes Absolute 0.43 0.20 - 1.00 K/mcL LAB HEMETOLOGY METHOD 06/02/2025 4:09 PM EDT [facility] Eosinophils Absolute 0.08 0.00 - 0.50 K/mcL LAB HEMETOLOGY METHOD 06/02/2025 4:09 PM EDT [facility] Basophils Absolute 0.04 0.00 - 0.20 K/mcL LAB HEMETOLOGY METHOD 06/02/2025 4:09 PM EDT [facility] Immature Granulocytes Absolute 0.01 0.00 - 0.03 K/mcL LAB HEMETOLOGY METHOD 06/02/2025 4:09 PM EDT [facility] Blood Venous blood specimen / Unknown Venipuncture / Unknown 06/02/2025 3:00 PM EDT 06/02/2025 3:16 PM EDT us Claudia ARMENDRAIZ LAB BLOOD ORDERABLES Fin al Result [facility] [address] [place] [address], * (ABNORMAL) Ethanol (06/02/2025 3:00 PM EDT) Ethanol Level 269(H) 0 - 10 mg/dL LAB CHEMISTRY METHOD 06/02/2025 4:02 PM EDT [facility] Blood Venous blood specimen / Unknown Venipuncture / Unknown 06/02/2025 3:00 PM EDT 06/02/2025 3:16 PM EDT us Claudia Johnson [place] LAB BLOOD ORDERABLES Fin al Result Performing Organization Address [facility]/ZIP Co de Phone Number [facility] [address] [place] [address], [place] [phone] * (ABNORMAL) Acetaminophen level (06/02/2025 3:00 PM EDT) Acetaminophen Level <2.0(L) 10.0 - 30.0 mcg/mL LAB CHEMISTRY METHOD 06/02/2025 4:02 PM EDT [facility] Blood Venous blood specimen / Unknown Venipuncture / Unknown 06/02/2025 3:00 PM EDT 06/02/2025 3:16 PM EDT us Claudia ARMENDARIZ LAB BLOOD ORDERABLES Fin al Result Performing Organization Address City/[facility]/ZIP Co de Phone Number [facility] [address] [place] [address], [place] [phone] * Salicylate level (06/02/2025 3:00 PM EDT) Salicylate Level 3.3 2.0 - 29.0 mg/dL LAB CHEMISTRY METHOD 06/02/2025 4:13 PM EDT [facility] Blood Venous blood specimen / Unknown Venipuncture / Unknown 06/02/2025 3:00 PM EDT 06/02/2025 3:16 PM EDT Claudia ARMENDARIZ LAB BLOOD ORDERABLES Fin al Result [facility] [address] [place] [address], * (ABNORMAL) Comprehensive metabolic panel (06/02/2025 3:00 PM EDT) Sodium 131(L) 133 - 145 mmol/L LAB CHEMISTRY METHOD 06/02/2025 4:13 PM [facility] Potassium 3.7 3.5 - 5.5 mmol/L LAB CHEMISTRY METHOD 06/02/2025 4:13 PM [facility] Chloride 94(L) 96 - 110 mmol/L LAB CHEMISTRY METHOD 06/02/2025 4:13 PM [facility] CO2 29 21 - 32 mmol/L LAB CHEMISTRY METHOD 06/02/2025 4:13 PM [facility] Anion Gap 8 3 - 11 LAB CHEMISTRY METHOD 06/02/2025 4:13 PM [facility] Glucose 121(H) 70 - 100 mg/dL LAB CHEMISTRY METHOD 06/02/2025 4:13 PM [facility] BUN 5 5 - 25 mg/dL LAB CHEMISTRY METHOD 06/02/2025 4:13 PM [facility] Creatinine 0.68(L) 0.70 - 1.30 mg/dL LAB CHEMISTRY METHOD 06/02/2025 4:13 PM [facility] eGFR 108 >=60 mL/min/1. 73m2 LAB CHEMISTRY METHOD 06/02/2025 4:13 PM [facility] Comment:Calculation based on the Chronic Kidney Disease Epidemiology Collaboration (CKD-EPI) equation refit without adjustment for race. BUN/Creatinine Ratio 7.4 LAB CHEMISTRY METHOD 06/02/2025 4:13 PM [facility] Calcium 8.9 8.5 - 10.5 mg/dL LAB CHEMISTRY METHOD 06/02/2025 4:13 PM EDT [facility] AST (SGOT) 59(H) 10 - 42 unit/L LAB CHEMISTRY METHOD 06/02/2025 4:13 PM EDT [facility] ALT (SGPT) 52 10 - 60 unit/L LAB CHEMISTRY METHOD 06/02/2025 4:13 PM EDT [facility] Alkaline Phosphatase 197(H) 42 - 121 unit/L LAB CHEMISTRY METHOD 06/02/2025 4:13 PM EDT [facility] Total Protein 7.6 6.0 - 8.0 g/dL LAB CHEMISTRY METHOD 06/02/2025 4:13 PM EDT [facility] Albumin 3.6 3.2 - 5.0 g/dL LAB CHEMISTRY METHOD 06/02/2025 4:13 PM EDT [facility] Total Bilirubin 0.8 0.0 - 1.4 mg/dL LAB CHEMISTRY METHOD 06/02/2025 4:13 PM EDT [facility] Blood Venous blood specimen / Unknown Venipuncture / Unknown 06/02/2025 3:00 PM EDT 06/02/2025 3:16 PM EDT us Claudia ARMENDARIZ LAB BLOOD ORDERABLES Fin al Result [facility] [address] [place] [address], * ECG 12 lead (06/02/2025 2:56 PM EDT) Ventricular Rate ECG 93 BPM GEMUSE Atrial Rate 93 BPM GEMUSE P-R Interval 160 ms GEMUSE QRS Duration 90 ms GEMUSE Q-T Interval 376 ms GEMUSE QTc 467 ms GEMUSE P Wave [place] 65 degrees GEMUSE R [place] 24 degrees GEMUSE T [place] 13 degrees GEMUSE ECG Interpretation Normal sinus rhythm Abnormal ECG When compared with ECG of 02-FEB-2025 10:01, No significant change was found Confirmed by BUFFUM ,M.D., REMBERTO ([id number]) on 06/02/2025 4:25:18 PM GEMUSE 06/02/2025 2:56 PM EDT 06/02/2025 4:25 PM EDT us Claudia ARMENDARIZ ECG ORDERABLES Final Re sult GEMUSE from Last 3 Months Insurance Advance Directives Documents on File Type Date Recorded Patient Electro Mechanical Assembler Expl anation Health Care Decision (hx) 12/08/2011 [...] currently active code status orders. Care Teams Bleach Tester Relationship Specialty Start Date End Date Tanja Perry MD [address] [place] [address] PCP - General Family Medicine 02/03/25
--- OUTSIDE RECORDS SUMMARY | 2025-06-03 20:16 | XMS_ITS | Encounter Summary ---
Author Organization [employer] Address [address] [facility] [address] [place] [address] Care Team Providers Care Telecommunications Network Engineer Name Role Phone Tanja Perry MD Primary Care Provider [phone] Alia Taylor Unavailable Encounter Details Date Type Department Care Team ([facility] st Contact Info) Description 06/03/2025 Patient Outreach [facility] [address] [place] [address] Tanja Perry MD [address] [place], [place] [phone] Social History Tobacco Use Types Packs/Day Years [...] documented as of this encounter Care Teams Telecommunications Network Engineer Relationship Specialty Start Date End Date Tanja Perry MD [address] [place] [id number] PCP - General Family Medicine 11/17/15 Alia Taylor 06/03/25 Vi Pacheco Air Conditioning SpecialistMultiple Spindle Router Operator 09/12/23 [facility] 02/29/24 documented as of this encounter
--- OUTSIDE RECORDS SUMMARY | 2025-06-03 20:16 | XMS_ITS | Encounter Summary ---
Author Organization [employer] Address [address] [facility] [address] [place] [address] Care Team Providers Care Tea Taster Name Role Phone Tanja Perry MD Primary Care Provider [phone] Javier Smith RN Unavailable Alia Taylor Unavailable Reason for Visit * Reason Onset Date Comments Medication Question 06/09/2023 Encounter Details Date Type Department Care Team ([facility] st Contact Info) Description 06/09/[address] [facility] & PEDS [address] [place], [place] [phone] Tanja Perry MD [address] [place], [place] [phone] Medication Question Social History Tobacco Use Types [...] requesting an alternative. Please contact pt at [phone] documented in this encounter Plan of Treatment Not on file documented as of this encounter Visit Diagnoses Not on filedocumented in this encounter Additional Health Concerns Assessment Noted Time PHQ-9 Depression Total Score: 6 10/21/19 23 9:27 AM EDT documented as of this encounter Care Teams Tea Taster Relationship Specialty Start Date End Date Tanja Perry MD [address] [place] [address] PCP - General Family Medicine 11/17/15 Javier Smith, ELIZABETH [address] [place] [address] Registered Nurse Family Medicine 02/03/25 02/04/25 Alia Taylor 06/03/25 Vi Pacheco Salesperson CorsetsCasino Floor Supervisor 09/12/23 [facility] 02/29/24 documented as of this encounter
--- OUTSIDE RECORDS SUMMARY | 2025-06-03 20:16 | XMS_ITS | Encounter Summary ---
Author Organization [employer] Address [address] [facility] [address] [place] [address] Care Team Providers Care Egg Gatherer Name Role Phone Tanja Perry MD Primary Care Provider [phone] Javier Smith RN Unavailable [phone] Alia Taylor Unavailable Reason for Visit * Reason Onset Date Comments Nurse Triage 06/07/2023 Encounter Details Date Type Department Care Team ([facility] st Contact Info) Description 06/07/2023 Telephone [facility] PEDS [address] [place], [place] [phone] Tanja Perry MD [address] [place], [place] [phone] Nurse Triage Social History Tobacco Use Types [...] accepted this outcome Please contact pt at [phone] documented in this encounter Plan of Treatment Not on file documented as of this encounter Visit Diagnoses Not on filedocumented in this encounter Additional Health Concerns Assessment Noted Time PHQ-9 Depression Total Score: 6 10/21/19 23 9:27 AM EDT documented as of this encounter Care Teams Egg Gatherer Relationship Specialty Start Date End Date Tanja Perry MD [address] [place] [address] PCP - General Family Medicine 11/17/15 Javier Smith, RN [address] [place] [address] Registered Nurse Family Medicine 02/03/25 02/04/25 Alia Taylor 06/03/25 Vi Pacheco Mechanical Ordnance AssemblerInvasive Cardiovascular Technologist 09/12/23 [facility] [place] 02/29/24 documented as of this encounter
--- OUTSIDE RECORDS SUMMARY | 2025-06-03 20:16 | XMS_ITS | Encounter Summary ---
Author Organization [employer] Address [address] [facility] [address] [place] [address] Care Team Providers Care Biomass Facilitator Name Role Phone Tanja Perry MD Primary Care Provider [phone] Alia Taylor Unavailable Reason for Visit * Reason Comments Care Coordination [facility] E D Follow Up Encounter Details Date Type Department Care Team (Latest Contact Info) Description 06/03/2025 Patient Outreach [facility] [address] [place], [place] [phone] Tanja Perry MD [address] [place] [address] Care Coordination ([facility] ED Follow Up) Social History Tobacco Use Types Packs/Day Years [...] AM EDT documented as of this encounter Progress Notes * Alia Taylor - 06/03/2025 11:25 AM EDT [facility] patient visited [facility] ED on 06/02/25. ED visit note has been scanned intopatient's chart. Notification sent to the Triage Nurse team to follow up with patient for ED statuscheck and medication reconciliation. * Thea Brown RN - 06/03/2025 11:25 AM EDT Pt. Was admitted to inpatient psych for diagnoses F29 Unspecified Schizophrenia Spectrum and other Psychotic Disorder F32.9 Unspecified Depressive Disorder Deemed unsafe to return to community. To f/up upon discharge documented in this encounter Plan of Treatment Not on file documented as of this encounter Visit Diagnoses Not on filedocumented in this encounter Additional Health Concerns Assessment Noted Time PHQ-9 Depression Total Score: 8 04/23/20 25 10:09 AM EDT documented as of this encounter Care Teams Biomass Facilitator Relationship Specialty Start Date End Date Tanja Perry MD [address] [place] [address] PCP - General Family Medicine 11/17/15 Alia Taylor 06/03/25 Vi Pacheco Director MobileAccounting Assistant 09/12/[address] [facility] 02/29/24 documented as of this encounter
--- OUTSIDE RECORDS SUMMARY | 2025-06-03 20:16 | XMS_ITS ---
Author Organization [employer] Address [address] [facility] 7t [place] [address] Care Team Providers Care Hydraulic Plumber Name Role Phone Tanja Perry MD Primary Care Provider [phone] Alia Taylor Unavailable CHW Complex Status:Outreach In Progress (Enrolling) Start date:06/03/2025 Enrollment reason:ADT Feed Overview CP Assigned Patient- Patient went to [facility] ED on 06/02/25. Case Team Name Relationship Phone Alia Taylor(Responsible Staff) [phone] Continued Care and Services Coordination
--- OUTSIDE RECORDS SUMMARY | 2025-06-03 20:16 | XMS_ITS | Encounter Summary ---
Author Organization [employer] Address [address] [facility] 7t [place] [address] Care Team Providers Care Supervisor Irrigation Name Role Phone Tanja Perry MD Primary Care Provider [phone] Javier Smith RN Unavailable [phone] Alia Taylor Unavailable Encounter Details Date Type Department Care Team (Late st Contact Info) Description 06/14/2023 Orders Only [facility] CHC MED & PEDS [address] [place], [place] [phone] Isak Mattson MD [address] [place] [address] Low testosterone in male (Primary Dx); Other [...] documented as of this encounter Care Teams Supervisor Irrigation Relationship Specialty Start Date End Date Tanja Perry MD [address] [place] [address] PCP - General Family Medicine 11/17/15 Javier Smith, ELIZABETH [address] [place] [id number] Registered Nurse Family Medicine 02/03/25 02/04/25 Alia Taylor 06/03/25 Vi Pacheco Electrical TroubleshooterInjection Maintenance Technician 09/12/23 Formerly Named [facility] 02/29/24 documented as of this encounter
--- OUTSIDE RECORDS SUMMARY | 2025-06-03 20:16 | XMS_ITS | Encounter Summary ---
Author Organization [employer] Address [address] [facility] 7t [place] [address] Care Team Providers Care Disability Attorney Name Role Phone Tanja Perry MD Primary Care Provider [phone] Alia Taylor Unavailable Encounter Details Date Type Department Care Team ([facility] st Contact Info) Description 06/03/[address] [facility] CHC MED & PEDS [address] [place], [place] [phone] ProviderChuck MD Social History Tobacco Use Types [...] ECG 12-LEAD Routine 06/02/2025 10:19 AM EDT documented in this encounter Results * ECG 12 lead (06/02/2025 10:19 AM EDT) us Historical Provider ECG ORDERABLES Final Res ult documented in this encounter Visit Diagnoses Not on filedocumented in this encounter Additional Health Concerns Assessment Noted Time PHQ-9 Depression Total Score: 8 04/23/20 25 10:09 AM EDT documented as of this encounter Care Teams Disability Attorney Relationship Specialty Start Date End Date Tanja Perry MD [address] [place] [id number] PCP - General Family Medicine 11/17/15 Alia Taylor 06/03/25 Vi Pacheco Pipe Organ BuilderDeputy Bailiff 09/12/23 [facility] 02/29/24 documented as of this encounter
--- OUTSIDE RECORDS SUMMARY | 2025-06-03 20:16 | XMS_ITS | Encounter Summary ---
Author Organization [employer] Address [address] [facility] 7t [place] [address] Care Team Providers Care Red Leader Name Role Phone Tanja Perry MD Primary Care Provider [phone] Javier Smith RN Unavailable [phone] Alia Taylor Unavailable Reason for Visit * Reason Onset Date Comments Appointment Request 08/24/2023 Encounter Details Date Type Department Care Team ([facility] Contact Info) Description 08/24/2023 Telephone [facility] MED & PEDS [address] [place], [place] [phone] Tanja Perry MD [address] [place], [place] [phone] Appointment Request Social History Tobacco Use Types [...] denied any concerns. Please contact pt at [phone] documented in this encounter Plan of Treatment Not on file documented as of this encounter Visit Diagnoses Not on filedocumented in this encounter Additional Health Concerns Assessment Noted Time PHQ-9 Depression Total Score: 6 10/21/19 23 9:27 AM EDT documented as of this encounter Care Teams Red Leader Relationship Specialty Start Date End Date Tanja Perry MD [address] [place] [address] PCP - General Family Medicine 11/17/15 Javier Smith, ELIZABETH [address] [place] [id number] Registered Nurse Family Medicine 02/03/25 02/04/25 Alia Taylor 06/03/25 Vi Pacheco Mandarin TutorData Visualization Developer 09/12/23 [facility] 02/29/24 documented as of this encounter
--- OUTSIDE RECORDS SUMMARY | 2025-06-03 20:16 | XMS_ITS | Encounter Summary ---
Author Organization [employer] Address [address] [facility] 7t [place] [address] Care Team Providers Care Meter And Service Line Inspector Name Role Phone Tanja Perry MD Primary Care Provider [phone] Alia Taylor Unavailable Reason for Visit * Reason Comments Care Coordination CP Care Coordination Chart review Encounter Details Date Type Department Care Team (Latest Contact Info) Description 06/03/2025 Patient Outreach [facility] CHC MED & PEDS [address] [place], [place] [phone] Tanja Perry MD [address] [place], [place] [phone] Care Coordination (CP Care Coordination Chart review) Social History Tobacco Use Types Packs/Day Years [...] Progress Notes * Alia Taylor - 06/03/2025 11:32 AM EDT [facility] Coordinator, Alia Taylor, performed chart review, as patient has experienced anADT event and has been identified as being engaged with a [facility] Program. Patient is assigned to CP Program ICP to Policeman Kvng Butcher. Patient visited [facility] ED on 06/02/25. Last appointment in PCP office on 04/23/25 No upcoming appointment schedule. documented in this encounter Plan of Treatment Not on file documented as of this encounter Visit Diagnoses Not on filedocumented in this encounter Additional Health Concerns Assessment Noted Time PHQ-9 Depression Total Score: 8 04/23/20 10:09 AM EDT documented as of this encounter Care Teams Meter And Service Line Inspector Relationship Specialty Start Date End Date Tanja Perry MD [address] [place] [id number] PCP - General Family Medicine 11/17/15 Alia Taylor 06/03/25 Vi Pacheco Billet ExaminerHouse Supervisor 09/12/23 [facility][Note 3] 02/29/24 documented as of this encounter
[2025-06-04] MEDS: Nicotine 21 MG PATCH.TD24 TRANSDERMA (07:05)
[2025-06-04] MEDS: methADONE HCl 20 MG/2 ML ORAL.CONC 100 MG PO (07:48)
[2025-06-04 07:57] LABS: Hemoglobin A1C 67.6742 umol/L; Total Hemoglobin (HGBA1C) 2125.7395 umol/L
[2025-06-04 08:00] VITALS: BP 126/58; PULSE 100; RESP 20; TEMP 36.6; O2SAT 98
[2025-06-04 08:07] LABS: Alanine Aminotransferase 38 U/L (0-40); Albumin Level 4.0 g/dL (3.5-5.0); Alkaline Phosphatase 169 U/L (39-117); Anion Gap 14 (12-20); Aspartate Amino Transferase 46 U/L (5-37); Blood Urea Nitrogen 11 mg/dL (9-16); Calcium 9.3 mg/dL (8.4-10.2); Carbon Dioxide 29 mmol/L (22-29); Chloride 99 mmol/L (96-108); Cholesterol 158 mg/dL (<200); Creatinine Clr Calc Pharmacy 141.4; Estimated Glomerular Filt Rate > 60; HDL Cholesterol 90 mg/dL (>40); Potassium 4.1 mmol/L (3.3-5.1); Sodium 138 mmol/L (135-145); Total Protein 7.4 g/dL (6.5-8.0); Triglycerides 57 mg/dL (<150)
[2025-06-04 08:21] LABS: Free T4 (Free Thyroxine) 1.05 ng/dL (0.71-1.85); Thyroid Stimulating Hormone 2.21 uIU/mL (0.32-4.0)
[2025-06-04] MEDS: Albuterol Sulfate 90 MCG 8 GM INHALER 1 PUFF INHALE (08:31)
--- NOTE | 2025-06-04 08:37 | P.CONHOSP_ITS ---
History of Present Illness Data of Consult Service Date: 06/04/25 Primary Care Provider: Tanja Perry MD [facility] Reason for consult: Medical consult 55-year-old male with a past medical history of substance abuse, alcohol abuse, history of suicide attempts presented to the ED for suicidal ideation and alcohol withdrawal, his tox screen was positive for fentanyl, opiates. EKG with normal sinus rhythm, normal QTC, electrolytes within normal limits, no leukocytosis, stable H&H. BAL to 69 on admission. On admission he has no complaints except for 2 scabbed areas on his right forearm and left finger that he has been picking. No evidence of infection. He otherwise is stable, ambulatory on unit, no medical concerns. Review of Systems 2 Review of Systems: Denies any shortness of breath, chest pain, headaches, dysuria, abdominal pain or discomfort, nausea, vomiting or diarrhea. Denies fever or chills. [facility]LY [facility] Family History Mother Colon cancer Father No problems noted. Surgical History H/O hernia repair History of surgery on arm Social History (Updated 04/06/23 @ 08:34 by Kaylen Fowler CMA) Household Members: None Housing: Apartment Do you presently have visiting nurse or other home services: No Alcohol intake: former Patient Tobacco Use Status: Current everyday Tobacco user Tobacco use type: Cigarette Cigarette Packs Per Day: 0.5 Cigarettes Per Day: 10.0 Years Smoked: 3 Smoked in Last 30 Days: Yes Patient Interested in Nicotine Replacement: Yes (patch) Patient Given Instructions on How to Stop Smoking: Yes Date Education Initiated: 06/03/25 Second Hand Smoke Exposure: No Currently Displaying Signs/Symptoms of Drug Intoxication Withdrawal: No Have you been hit, kicked, punched, or otherwise hurt by someone within the past year? If so, by whom?: No Do you feel safe in your current relationship?: Yes Is there a partner from a previous relationship who is making you feel unsafe now?: No Are you made to feel afraid or neglected: No Advance Directives: No Advance Directives Information Provided: No Do you have thoughts of harming others: None Do you have a plan to hurt others: No Plan Recently lost weight without trying: No Eating poorly because of decreased appetite: No Nutrition Risks: No Nutritional Risk Poor oral hygiene: No service: No Sexual orientation: Straight/Heterosexual Meds Allergies Allergy/AdvReac Type Severity Reaction Status Date / Time Penicillins Allergy Severe cant breeth Verified 04/06/23 08:31 Active Medications: Current Medications Acetaminophen (Acetaminophen 325 Mg Tablet) 650 mg PO Q6H PRN PRN Reason: Headache/Pain, Scale 1-10 Last Admin: 06/04/25 06:00 Dose: 650 mg Al Hydroxide/Mg Hydroxide (Magnesium Hydrox/Alum Hydrox 30 Ml Oral.Susp) 30 ml PO Q6H PRN PRN Reason: Heartburn/Nausea Albuterol Sulfate (Albuterol Sulfate 90 Mcg 8 Gm Inhaler) 1 puff INHALE DAILY [facility] Last Admin: 06/04/25 08:31 Dose: 1 puff Atorvastatin Calcium (Atorvastatin Calcium 40 Mg Tablet) 40 mg PO DAILY [facility] Last Admin: 06/04/25 08:33 Dose: 40 mg Fluticasone Propionate (Fluticasone Propionate Nasal 16 Gm Joy) 2 spray NOSTRIL-B DAILY [facility] Last Admin: 06/04/25 08:31 Dose: 2 spray Gabapentin (Gabapentin 300 Mg Capsule) 300 mg PO TID [facility] Last Admin: 06/04/25 08:33 Dose: 300 mg Hydroxyzine HCl (Hydroxyzine Hcl 25 Mg Tablet) 25 mg PO Q6H PRN PRN Reason: mild anxiety Hydroxyzine HCl (Hydroxyzine Hcl 50 Mg Tablet) 50 mg PO TID [facility] Last Admin: 06/04/25 08:33 Dose: 50 mg Lorazepam (Lorazepam 1 Mg Tablet) 1 mg PO Q2H PRN PRN Reason: CIWA 8-11 Lorazepam (Lorazepam 1 Mg Tablet) 2 mg PO Q2H PRN PRN Reason: CIWA 12-15 Magnesium Hydroxide (Milk Of Magnesia 30 Ml Oral.Susp) 30 ml PO DAILY PRN PRN Reason: Constipation Magnesium Oxide (Magnesium Oxide 400 Mg Tablet) 400 mg PO DAILY [facility] Last Admin: 06/04/25 08:33 Dose: 400 mg Methadone HCl (Methadone Hcl 20 Mg/2 Ml Oral.Conc) 100 mg PO DAILY [facility] Last Admin: 06/04/25 07:48 Dose: 100 mg Nicotine (Nicotine 21 Mg Patch.Td24) 21 mg TRANSDERMA DAILY PRN PRN Reason: nicotine craving Last Admin: 06/04/25 07:05 Dose: 21 mg Nicotine Polacrilex (Nicotine Polacrilex 2 Mg Gum) 2 mg BUCCAL Q2H PRN PRN Reason: Nicotine Cravings Thiamine HCl (Thiamine Hcl 100 Mg Tablet) 100 mg PO DAILY [facility] Last Admin: 06/04/25 08:33 Dose: 100 mg Trazodone HCl (Trazodone Hcl 50 Mg Tablet) 50 mg PO BEDTIME MRX1 PRN PRN Reason: Insomnia Trazodone HCl (Trazodone Hcl 50 Mg Tablet) 50 mg PO BEDTIME [facility] Last Admin: 06/03/25 21:28 Dose: 50 mg Home Medications ?Medication ?Instructions ?Recorded ?Confirmed ?Last Taken ?Type albuterol sulfate 90 mcg/actuation 90 mcg inhalation D AILY 01/13/23 06/03/25 Unknown History aerosol inhaler (Ventolin HFA) atorvastatin 40 mg tablet 40 mg PO DAILY 01/13/2305/0806/02/25 History clonazepam 0.5 mg tablet 0.5 mg PO DAILY PRN 01/13/23 04/06/23 Unknown History fluticasone propionate 50 2 spray intranasal DAILY 04/2906/03/25 06/03/25 History mcg/actuation nasal spray,suspension hydroxyzine pamoate 50 mg capsule 50 mg PO TID 3 06/03/25 06/03/25 15:00 History mirtazapine 45 mg tablet 45 mg PO BEDTIME 01/13/23 Unknown History paliperidone palmitate 117 mg/0.75 156 mg IM QMONTH 06/03/25 Unknown History mL intramuscular syringe (Invega Sustenna) trazodone 50 mg tablet 50 mg PO BEDTIME 01/13/2306/02/25 21:15 History Campral 666 mg PO TID 06/03/2506/0306/03/25 14:53 History gabapentin 300 mg PO TID 06/03/2506/0306/03/25 14:48 History methadone 100 mg PO DAILY 06/03/2506/03/25 10:22 History Physical Exam 2 Vital Signs and Narrative: Vital Signs: Last Vital Signs Temp 97.9 F 06/04/25 08:00 Pulse 100 06/04/25 08:00 Resp 20 06/04/25 08:00 BP 126/58 L 06/04/25 08:00 Pulse Ox 98 06/04/25 08:00 O2 Del Method Room Air 06/04/25 08:00 BMI result Body Mass Index 29.4 Alert and oriented X3, clam and cooperative. Answers questions. Friendly. Neuro: CN II-X11 intact, no deficits, visual acuity intact EYES: PERRLA, EOM intact ENT: Hearing intact, MMM Cardiac: S1 S2 RRR, No ectopy Pulmonary: lungs clear to auscultation, No increased WOB. Abdominal: BS active in all 4 quadrants, no guarding or tenderness MSK: Strength 5/5 upper and lower extremities : Deferred Extremities: No edema in lower extremities Psych: Mood stable, Quiet and cooperative. Skin: Warm and dry, Intact, 2 small circular areas with scabs, no surrounding redness warmth or drainage. Results Labs 06/04/25 07:28 Labs: Laboratory Results - last 24 hr 06/04/25 07:28 Anion Gap 14 Estim Creat Clear Calc 141.4 Estimated GFR > 60 Random Glucose 99 Estimat Average Glucose 100 Hemoglobin A1c % 5.1 Calcium 9.3 Total Bilirubin 1.1 H AST 46 H ALT 38 Alkaline Phosphatase 169 H Total Protein 7.4 Albumin 4.0 Triglycerides 57 Cholesterol 158 LDL Cholesterol, Calc 57 HDL Cholesterol 90 TSH 2.21 Free T4 1.05 Assessment and Plan (1) HLD (hyperlipidemia): Status: Acute Plan 55-year-old male with medical history listed below presents to [facility] ED with a hot withdrawn suicidal ideation. ETOH abuse/suicidal ideation/opiate misuse Treatment per psychiatric team Hyperlipidemia Lipid panel stable Continue atorvastatin Thank you for allowing me to participate in the care of this patient. Will follow with you, please notify medical provider with any changes in condition or concerns.
--- NOTE | 2025-06-04 09:03 | HO.PSYADMNOT ---
[facility] Date of Service: 06/04/25 Chief Complaint: F29, F32.9 Sources of Information: patient interviewed, chart reviewed and crisis/core team assessment reviewed HPI Subjective Notes: Conditional Voluntary Narrative: Patient is a 48-year-old male with history of schizophrenia, PTSD, opiate use disorder, alcohol use disorder who self presented to ER due to suicidal ideation and auditory hallucinations, secondary to substance use and life stressors. Per crisis report, patient presented to ER with suicidal ideation stating he had had enough and is thinking of ending his life. Patient reports he has not attempted nor does he have a plan. Patient stated, I feel no good. I just want to . patient reports he had a plan he wanted to hang himself . He reported auditory hallucinations telling him to harm himself. Patient reports his recently left him because of his substance use. Utox positive for fentanyl, opiates and methadone. BAL was 269. History of 2 previous suicide attempts, 1 via hanging and the other via overdosing on drugs. Patient reports sleep and appetite are poor. During admission assessment patient presents alert and oriented x3. Calm and cooperative. Patient reports feeling depressed ; patient stated, my told me she was going to leave me because I started using and drinking. She said she had enough and went to her aunt's house, then I came to the hospital . Patient currently denies SI/HI/VH/AH. Patient reports he has not been taking his medications for the last week. Patient reports using 2 bags of heroin and drinking 10 beers daily. Patient reports he is not interested in a substance abuse program. Patient stated, I just want to restart my medications and have somewhere to talk to people. I can stop using myself. I'll let my body clear out while I'm here . Past Psychiatric History: History of multiple inpatient psychiatric hospitalizations. History of 2 prior suicide attempts. hx of detox admissions. Psychiatrist: Dr. Cortes [facility] Therapist: Does not have one. hx of SIB via hitting self. Medical Evaluation Reviewed: Yes [facility] Surgical History H/O hernia repair History of surgery on arm Family History: Schizophrenia Social History: Lives with girlfriend of 30 years. Two adult children. Disability. Highest level of education completed 7th grade. Substance History: History of opioid, fentanyl, alcohol use. Trauma History: yes Diagnostics Vital Signs (24Hr): Vital Signs - 24 hr 06/03/25 17:17 06/03/25 19:55 06/04/25 08:00 Temperature 100.3 F 99.2 F 97.9 F Pulse Rate 106 H 108 H 100 Respiratory Rate 18 16 20 Blood Pressure 131/62 118/67 126/58 L Pulse Oximetry 93 95 98 Oxygen Delivery Method Room Air Room Air Room Air BMI result Body Mass Index 29.4 Labs 06/04/25 07:28 Labs: Laboratory Results - last 48 hr 06/04/25 07:28 Sodium 138 Potassium 4.1 Chloride 99 Carbon Dioxide 29 Anion Gap 14 BUN 11 Creatinine 0.62 Estim Creat Clear Calc 141.4 Estimated GFR > 60 Random Glucose 99 Estimat Average Glucose 100 Hemoglobin A1c % 5.1 Calcium 9.3 Total Bilirubin 1.1 H AST 46 H ALT 38 Alkaline Phosphatase 169 H Total Protein 7.4 Albumin 4.0 Triglycerides 57 Cholesterol 158 LDL Cholesterol, Calc 57 HDL Cholesterol 90 TSH 2.21 Free T4 1.05 Meds/Allergies Meds Home Medications ?Medication ?Instructions ?Recorded ?Confirmed ?Type albuterol sulfate 90 mcg/actuation 90 mcg inhalation DAILY 01/13/23 06/03/25 History aerosol inhaler (Ventolin HFA) atorvastatin 40 mg tablet 40 mg PO DAILY 01/13/23 06/03/25 History clonazepam 0.5 mg tablet 0.5 mg PO DAILY PRN 01/13/23 04/06/23 History fluticasone propionate 50 2 spray intranasal DAILY 01/13/23 06/03/25 History mcg/actuation nasal spray,suspension hydroxyzine pamoate 50 mg capsule 50 mg PO TID 01/13/23 06/03/25 History mirtazapine 45 mg tablet 45 mg PO BEDTIME 01/13/23 04/06/23 History paliperidone palmitate 117 mg/0.75 156 mg IM QMONTH 01/13/23 06/03/25 History mL intramuscular syringe (Invega Sustenna) trazodone 50 mg tablet 50 mg PO BEDTIME 01/13/23 06/03/25 History Campral 666 mg PO TID 06/03/25 06/03/25 History gabapentin 300 mg PO TID 06/03/25 06/03/25 History methadone 100 mg PO DAILY 06/03/25 06/03/25 History Allergies Allergies Allergy/AdvReac Type Severity Reaction Status Date / Time Penicillins Allergy Severe cant breeth Verified 04/06/23 08:31 fish derived (fish) Allergy Anaphylaxis Verified 06/04/25 15:48 Assessment & Plan Assessment & Plan (1) Schizophrenia: Status: Acute Code(s): F20.9 - Schizophrenia, unspecified (2) PTSD (post-traumatic stress disorder): Status: Acute Code(s): F43.10 - Post-traumatic stress disorder, unspecified (3) Opioid use disorder: Status: Acute Code(s): F11.90 - Opioid use, unspecified, uncomplicated (4) Alcohol use disorder: Status: Acute Code(s): F10.90 - Alcohol use, unspecified, uncomplicated Plan Patient is a 48-year-old male with history of schizophrenia, PTSD, opiate use disorder, alcohol use disorder who self presented to ER due to suicidal ideation and auditory hallucinations, secondary to substance use and life stressors. Plan: CV 15 minute safety checks CIWA Continue home medications Obtain collateral encourage groups ? referral to substance abuse program discharge planning Patient educated on: diagnosis and medication risk/benefits Reason for continued inpatient stay Substantial Risk for: med/psych decompensation Statement Statement: I have reviewed the history and physical and performed a pertinent examination on my patient. No changes have occurred unless specified. If the History and Physical was not performed prior to admission, the Hospitalist's service will be consulted for completing the admission physical. Time Spent With Patient Time: Total time managing care of this patient today _60___ minutes.
[2025-06-04 19:55] VITALS: BP 135/74; PULSE 83; RESP 16; TEMP 36.6; O2SAT 97
[2025-06-05 07:00] VITALS: BMI 29.8
[2025-06-05 08:00] VITALS: BP 114/72; PULSE 79; RESP 15; TEMP 36.5; O2SAT 98
[2025-06-05] MEDS: methADONE HCl 20 MG/2 ML ORAL.CONC 100 MG PO (08:26)
[2025-06-05] MEDS: Nicotine 21 MG PATCH.TD24 TRANSDERMA (09:31)
[2025-06-05] MEDS: Albuterol Sulfate 90 MCG 8 GM INHALER 1 PUFF INHALE (09:31)
--- NOTE | 2025-06-05 09:58 | P.PNPSI_ITS ---
Subjective Subjective Date of Service: 06/05/25 Reason For Visit: F29, F32.9 Subjective Notes: Conditional Voluntary Interim History: Active on unit. social with peers. Showered. Patient reports feeling better today; pt stated, I feel better with the medications. I'm going to talk to my trolley coach driver to stay clean . denies any withdrawal symptoms. denies SI/HI/VH/AH. Focused on discharge. Patient reports he does not need medication refills because I have meds at home . Patient reports he plans on following up with outpatient providers. Medication Compliance: Yes Side effects from medications: No Attending Groups: Yes Mental Status Exam Mental Status Exam Narrative: Pt is alert and oriented; behavior is cooperative and calm; dressed in casual attire; mood is described as good ; eye contact appropriate; Speech is normal rate, volume and not pressured; thought process is organized; Thought content is on discharge; denies SI/HI/VH/AH. Diagnostics Vital Signs (24Hr): Vital Signs - 24 hr 06/04/25 19:55 Temperature 97.9 F Pulse Rate 83 Respiratory Rate 16 Blood Pressure 135/74 Pulse Oximetry 97 Oxygen Delivery Method Room Air BMI result Body Mass Index 29.4 Labs 06/04/25 07:28 Labs: Laboratory Results - last 48 hr 06/04/25 07:28 Sodium 138 Potassium 4.1 Chloride 99 Carbon Dioxide 29 Anion Gap 14 BUN 11 Creatinine 0.62 Estim Creat Clear Calc 141.4 Estimated GFR > 60 Random Glucose 99 Estimat Average Glucose 100 Hemoglobin A1c % 5.1 Calcium 9.3 Total Bilirubin 1.1 H AST 46 H ALT 38 Alkaline Phosphatase 169 H Total Protein 7.4 Albumin 4.0 Triglycerides 57 Cholesterol 158 LDL Cholesterol, Calc 57 HDL Cholesterol 90 TSH 2.21 Free T4 1.05 Medications Medications Current Medications Acetaminophen (Acetaminophen 325 Mg Tablet) 650 mg PO Q6H PRN PRN Reason: Headache/Pain, Scale 1-10 Last Admin: 06/05/25 03:54 Dose: 650 mg Al Hydroxide/Mg Hydroxide (Magnesium Hydrox/Alum Hydrox 30 Ml Oral.Susp) 30 ml PO Q6H PRN PRN Reason: Heartburn/Nausea Albuterol Sulfate (Albuterol Sulfate 90 Mcg 8 Gm Inhaler) 1 puff INHALE DAILY [facility] Last Admin: 06/05/25 09:31 Dose: 1 puff Atorvastatin Calcium (Atorvastatin Calcium 40 Mg Tablet) 40 mg PO DAILY [facility] Last Admin: 06/05/25 09:28 Dose: 40 mg Fluticasone Propionate (Fluticasone Propionate Nasal 16 Gm [place]) 2 spray NOSTRIL-B DAILY [facility] Last Admin: 06/05/25 09:29 Dose: 2 spray Gabapentin (Gabapentin 300 Mg Capsule) 300 mg PO TID [facility] Last Admin: 06/05/25 09:28 Dose: 300 mg Hydroxyzine HCl (Hydroxyzine Hcl 25 Mg Tablet) 25 mg PO Q6H PRN PRN Reason: mild anxiety Last Admin: 06/04/25 13:02 Dose: 25 mg Hydroxyzine HCl (Hydroxyzine Hcl 50 Mg Tablet) 50 mg PO TID [facility] Last Admin: 06/05/25 09:28 Dose: 50 mg Lorazepam (Lorazepam 1 Mg Tablet) 1 mg PO Q2H PRN PRN Reason: CIWA 8-11 Lorazepam (Lorazepam 1 Mg Tablet) 2 mg PO Q2H PRN PRN Reason: CIWA 12-15 Magnesium Hydroxide (Milk Of Magnesia 30 Ml Oral.Susp) 30 ml PO DAILY PRN PRN Reason: Constipation Magnesium Oxide (Magnesium Oxide 400 Mg Tablet) 400 mg PO DAILY [facility] Last Admin: 06/05/25 09:28 Dose: 400 mg Methadone HCl (Methadone Hcl 20 Mg/2 Ml Oral.Conc) 100 mg PO DAILY [facility] Last Admin: 06/05/25 08:26 Dose: 100 mg Mupirocin (Mupirocin 2 % Oint 22 Gm Tube) 1 appl TOPICAL BID [facility]; Protocol Last Admin: 06/05/25 09:29 Dose: 1 appl Nicotine (Nicotine 21 Mg Patch.Td24) 21 mg TRANSDERMA DAILY PRN PRN Reason: nicotine craving Last Admin: 06/05/25 09:31 Dose: 21 mg Nicotine Polacrilex (Nicotine Polacrilex 2 Mg Gum) 2 mg BUCCAL Q2H PRN PRN Reason: Nicotine Cravings Thiamine HCl (Thiamine Hcl 100 Mg Tablet) 100 mg PO DAILY [facility] Last Admin: 06/05/25 09:28 Dose: 100 mg Trazodone HCl (Trazodone Hcl 50 Mg Tablet) 50 mg PO BEDTIME MRX1 PRN PRN Reason: Insomnia Trazodone HCl (Trazodone Hcl 50 Mg Tablet) 50 mg PO BEDTIME [facility] Last Admin: 06/04/25 20:47 Dose: 50 mg Allergies Allergies Allergy/AdvReac Type Severity Reaction Status Date / Time Penicillins Allergy Severe cant breeth Verified 04/06/23 08:31 fish derived (fish) Allergy Anaphylaxis Verified 06/04/25 15:48 Assessment & Plan Assessment & Plan (1) Schizophrenia: Status: Acute Code(s): F20.9 - Schizophrenia, unspecified (2) PTSD (post-traumatic stress disorder): Status: Acute Code(s): F43.10 - Post-traumatic stress disorder, unspecified (3) Opioid use disorder: Status: Acute Code(s): F11.90 - Opioid use, unspecified, uncomplicated (4) Alcohol use disorder: Status: Acute Code(s): F10.90 - Alcohol use, unspecified, uncomplicated Plan Patient is a 48-year-old male with history of schizophrenia, PTSD, opiate use disorder, alcohol use disorder who self presented to ER due to suicidal ideation and auditory hallucinations, secondary to substance use and life stressors. Plan: CV 15 minute safety checks CIWA Continue home medications Obtain collateral encourage groups ? referral to substance abuse program discharge planning 06/05: Active on unit. social with peers. Showered. Patient reports feeling better today; pt stated, I feel better with the medications. I'm going to talk to my trolley coach driver to stay clean . denies any withdrawal symptoms. DC CIWA. denies SI/HI/VH/AH. Focused on discharge. Patient reports he does not need medication refills because I have meds at home . Patient reports he plans on following up with outpatient providers. Patient educated on: diagnosis and medication risk/benefits Reason for continued inpatient stay Substantial Risk for: stable for discharge Time Spent With Patient Time: Total time managing care of this patient today _20___ minutes.
--- NOTE | 2025-06-05 18:21 | HO.SUDE ---
Consult placed to Addiction Medicine for opiate and ETOH use. TW made 2 attempts to visit pt. 1st at 1430, however pt was in group. 2nd attempt at 1745, however pt was on the phone. Tw waited 10min for pt to finish call however pt phone call continued. ACS team to continue to follow pt and will revisit at a later time to complete recovery/BH eval.
[2025-06-05 20:00] VITALS: BP 142/72; PULSE 71; RESP 16; TEMP 36.9; O2SAT 97
[2025-06-06 07:39] VITALS: BP 121/73; PULSE 96; RESP 14; TEMP 36.7; O2SAT 97
[2025-06-06] MEDS: methADONE HCl 20 MG/2 ML ORAL.CONC 100 MG PO (07:47)
[2025-06-06] MEDS: Naloxone HCl Nasal TAKE HOME 4 MG SPRAY 8 MG NOSTRILALT (08:37)
--- NOTE | 2025-06-06 09:04 | HO.PSYCHPN ---
Subjective Subjective Date of Service: 06/06/25 Reason For Visit: F29, F32.9 Diagnostics Vital Signs (24Hr): Vital Signs - 24 hr 06/05/25 20:00 06/06/25 07:39 Temperature 98.4 F 98.1 F Pulse Rate 71 96 Respiratory Rate 16 14 Blood Pressure 142/72 H 121/73 Pulse Oximetry 97 97 Oxygen Delivery Method Room Air Room Air BMI result Body Mass Index 29.8 Labs 06/04/25 07:28 Medications Medications Current Medications Acetaminophen (Acetaminophen 325 Mg Tablet) 650 mg PO Q6H PRN PRN Reason: Headache/Pain, Scale 1-10 Last Admin: 06/06/25 06:16 Dose: 650 mg Al Hydroxide/Mg Hydroxide (Magnesium Hydrox/Alum Hydrox 30 Ml Oral.Susp) 30 ml PO Q6H PRN PRN Reason: Heartburn/Nausea Albuterol Sulfate (Albuterol Sulfate 90 Mcg 8 Gm Inhaler) 1 puff INHALE DAILY [facility] Last Admin: 06/06/25 08:36 Dose: Not Given Atorvastatin Calcium (Atorvastatin Calcium 40 Mg Tablet) 40 mg PO DAILY [facility] Last Admin: 06/06/25 08:35 Dose: 40 mg Fluticasone Propionate (Fluticasone Propionate Nasal 16 Gm [place]) 2 spray NOSTRIL-B DAILY [facility] Last Admin: 06/06/25 08:36 Dose: Not Given Gabapentin (Gabapentin 300 Mg Capsule) 300 mg PO TID [facility] Last Admin: 06/06/25 08:35 Dose: 300 mg Hydroxyzine HCl (Hydroxyzine Hcl 25 Mg Tablet) 25 mg PO Q6H PRN PRN Reason: mild anxiety Last Admin: 06/06/25 06:16 Dose: 25 mg Hydroxyzine HCl (Hydroxyzine Hcl 50 Mg Tablet) 50 mg PO TID [facility] Last Admin: 06/06/25 08:35 Dose: 50 mg Magnesium Hydroxide (Milk Of Magnesia 30 Ml Oral.Susp) 30 ml PO DAILY PRN PRN Reason: Constipation Magnesium Oxide (Magnesium Oxide 400 Mg Tablet) 400 mg PO DAILY [facility] Last Admin: 06/06/25 08:35 Dose: 400 mg Methadone HCl (Methadone Hcl 20 Mg/2 Ml Oral.Conc) 100 mg PO DAILY [facility] Last Admin: 06/06/25 07:47 Dose: 100 mg Mupirocin (Mupirocin 2 % Oint 22 Gm Tube) 1 appl TOPICAL BID [facility]; Protocol Last Admin: 06/06/25 08:36 Dose: Not Given Nicotine (Nicotine 21 Mg Patch.Td24) 21 mg TRANSDERMA DAILY PRN PRN Reason: nicotine craving Last Admin: 06/05/25 09:31 Dose: 21 mg Nicotine Polacrilex (Nicotine Polacrilex 2 Mg Gum) 2 mg BUCCAL Q2H PRN PRN Reason: Nicotine Cravings Trazodone HCl (Trazodone Hcl 50 Mg Tablet) 50 mg PO BEDTIME MRX1 PRN PRN Reason: Insomnia Trazodone HCl (Trazodone Hcl 50 Mg Tablet) 50 mg PO BEDTIME [facility] Last Admin: 06/05/25 20:44 Dose: 50 mg Allergies Allergies Allergy/AdvReac Type Severity Reaction Status Date / Time Penicillins Allergy Severe cant breeth Verified 04/06/23 08:31 fish derived (fish) Allergy Anaphylaxis Verified 06/04/25 15:48 Assessment & Plan Assessment & Plan (1) Schizophrenia: Status: Acute Code(s): F20.9 - Schizophrenia, unspecified (2) PTSD (post-traumatic stress disorder): Status: Acute Code(s): F43.10 - Post-traumatic stress disorder, unspecified (3) Opioid use disorder: Status: Acute Code(s): F11.90 - Opioid use, unspecified, uncomplicated (4) Alcohol use disorder: Status: Acute Code(s): F10.90 - Alcohol use, unspecified, uncomplicated Plan Patient is a 48-year-old male with history of schizophrenia, PTSD, opiate use disorder, alcohol use disorder who self presented to ER due to suicidal ideation and auditory hallucinations, secondary to substance use and life stressors. Plan: CV 15 minute safety checks CIWA Continue home medications Obtain collateral encourage groups ? referral to substance abuse program discharge planning 06/05: Active on unit. social with peers. Showered. Patient reports feeling better today; pt stated, I feel better with the medications. I'm going to talk to my production recovery operator to stay clean . denies any withdrawal symptoms. DC CIWA. denies SI/HI/VH/AH. Focused on discharge. Patient reports he does not need medication refills because I have meds at home . Patient reports he plans on following up with outpatient providers. Time Spent With Patient Time: Total time managing care of this patient today ____ minutes.
--- NOTE | 2025-06-06 09:05 | PM.PSYDC ---
DS: Providers Provider Date of Service: 06/06/25 Date of admission: 06/03/25 16:51 Date of discharge: 06/06/25 Primary care physician: Tanja Perry MD Admitting clinician: Zainab Saravia Consults: 06/03/25 17:15 Consult to Hospitalist Routine Comment: Consulting Provider: [facility] Hospitalists Reason For Exam: New external admit H+P 06/03/25 18:11 Addiction Medicine Provider Routine Consulting Provider: Addiction Covering Reason for consultation: opiate and etoh use Attending physician on discharge: Stephanie Toscano DS: Diagnosis Discharge Diagnosis (1) Schizophrenia: Status: Acute (2) PTSD (post-traumatic stress disorder): Status: Acute (3) Opioid use disorder: Status: Acute (4) Alcohol use disorder: Status: Acute DS: Medications Discharge Medications Home Medications: Home Medications ?Medication ?Instructions ?Recorded ?Confirmed albuterol sulfate 90 mcg/actuation 90 mcg inhalation DAILY 01/13/23 06/03/25 aerosol inhaler (Ventolin HFA) atorvastatin 40 mg tablet 40 mg PO DAILY 01/13/23 06/03/25 fluticasone propionate 50 2 spray intranasal DAILY 01/13/23 06/03/25 mcg/actuation nasal spray,suspension hydroxyzine pamoate 50 mg capsule 50 mg PO TID 01/13/23 06/03/25 mirtazapine 45 mg tablet 45 mg PO BEDTIME 01/13/23 04/06/23 paliperidone palmitate 117 mg/0.75 156 mg IM QMONTH 01/13/23 06/03/25 mL intramuscular syringe (Invega Sustenna) trazodone 50 mg tablet 50 mg PO BEDTIME 01/13/23 06/03/25 Campral 666 mg PO TID 06/03/25 06/03/25 gabapentin 300 mg PO TID 06/03/25 06/03/25 methadone 100 mg PO DAILY 06/03/25 06/03/25 Previous Rx's ?Medication ?Instructions ?Recorded magnesium oxide 400 mg PO DAILY 30 days #30 tabs 03/05/25 Data Data Completed and Pending Completed studies during hospitalization [Text1]: 06/04/25 07:28 Sodium 138 Potassium 4.1 Chloride 99 Carbon Dioxide 29 Anion Gap 14 BUN 11 Creatinine 0.62 Estim Creat Clear Calc 141.4 Estimated GFR > 60 Random Glucose 99 Estimat Average Glucose 100 Hemoglobin A1c % 5.1 Calcium 9.3 Total Bilirubin 1.1 H AST 46 H ALT 38 Alkaline Phosphatase 169 H Total Protein 7.4 Albumin 4.0 Triglycerides 57 Cholesterol 158 LDL Cholesterol, Calc 57 HDL Cholesterol 90 TSH 2.21 Free T4 1.05 DS: Summary Hospital Course Hospital Course: Mr. Bryan is a 48-year-old male with history of schizophrenia, PTSD, opiate use disorder, alcohol use disorder who self presented to [facility] ER due to suicidal ideation and auditory hallucinations, secondary to substance use and life stressors. He was admitted to [facility] on a CV for safety and stabilization. Pt was monitored for ETOH w/d per CIWA, which was d/c'd since he had no sx of w/d. He was continued on his home medications (see dc meds below) and was started on a nicotine patch. Subjective Notes: Conditional Voluntary Narrative: Patient is a 48-year-old male with history of schizophrenia, PTSD, opiate use disorder, alcohol use disorder who self presented to ER due to suicidal ideation and auditory hallucinations, secondary to substance use and life stressors. Per crisis report, patient presented to ER with suicidal ideation stating he had had enough and is thinking of ending his life. Patient reports he has not attempted nor does he have a plan. Patient stated, I feel no good. I just want to . patient reports he had a plan he wanted to hang himself . He reported auditory hallucinations telling him to harm himself. Patient reports his recently left him because of his substance use. Utox positive for fentanyl, opiates and methadone. BAL was 269. History of 2 previous suicide attempts, 1 via hanging and the other via overdosing on drugs. Patient reports sleep and appetite are poor. During admission assessment patient presents alert and oriented x3. Calm and cooperative. Patient reports feeling depressed ; patient stated, my told me she was going to leave me because I started using and drinking. She said she had enough and went to her aunt's house, then I came to the hospital . Patient currently denies SI/HI/VH/AH. Patient reports he has not been taking his medications for the last week. Patient reports using 2 bags of heroin and drinking 10 beers daily. Patient reports he is not interested in a substance abuse program. Patient stated, I just want to restart my medications and have somewhere to talk to people. I can stop using myself. I'll let my body clear out while I'm here . Past Psychiatric History: History of multiple inpatient psychiatric hospitalizations. History of 2 prior suicide attempts. hx of detox admissions. Psychiatrist: Dr. Cortes [facility] Therapist: Does not have one. hx of SIB via hitting self. Medical Evaluation Reviewed: Yes CV 15 minute safety checks CIWA Continue home medications Obtain collateral encourage groups ? referral to substance abuse program discharge planning 06/05: Active on unit. social with peers. Showered. Patient reports feeling better today; pt stated, I feel better with the medications. I'm going to talk to my pipe recovery specialist to stay clean . denies any withdrawal symptoms. DC CIWA. denies SI/HI/VH/AH. Focused on discharge. Patient reports he does not need medication refills because I have meds at home . Patient reports he plans on following up with outpatient providers. Patient educated on: diagnosis and medication risk/benefits Reason for continued inpatient stay Substantial Risk for: stable for discharge Time Spent with Patient Time attestation: Total time managing care of this patient today ____ minutes. Discharge Plan Discharge Anticipated Discharge Date/Time: 06/06/25 10:00 Patient Disposition: Home, Self-Care Discharge Diagnosis: Schizophrenia, PTSD, Opioid use d/o, Alcohol use d/o Referrals: Therapy & Psychiatry [Other] - 1 Week Referral Note: *Please follow up with your outpatient providers regarding aftercare appointments. Paperwork was sent on your behalf by the hospital so they are aware of your discharge. Tanja Perry MD [Primary Care Provider, Internal Medicine] - 1 Week Discharge Medications: Continued magnesium oxide 400 mg magnesium tablet 400 mg PO DAILY 30 Days Qty: 30 6RF Campral 666 mg PO TID gabapentin 300 mg PO TID methadone 100 mg PO DAILY mirtazapine 45 mg tablet 45 mg PO BEDTIME hydroxyzine pamoate 50 mg capsule 50 mg PO TID trazodone 50 mg tablet 50 mg PO BEDTIME Invega Sustenna 117 mg/0.75 mL syringe 156 mg IM QMONTH atorvastatin 40 mg tablet 40 mg PO DAILY albuterol sulfate [Ventolin HFA] 90 mcg/actuation HFA aerosol inhaler 90 mcg inhalation DAILY fluticasone propionate 50 mcg/actuation spray,suspension 2 spray intranasal DAILY Discontinued clonazepam 0.5 mg tablet 0.5 mg PO DAILY PRN Discharge Orders: Discharge Order (Routine); Ordered 06/06/25 Ordered By: Zainab Saravia Diet: Regular diet Activity on Discharge: As tolerated Stand Alone Forms: Patient Portal Discharge page Print Language: Dutch Care Plan Goals: Maintain mood and safe behaviors Take medications as prescribed Continue to pursue sobriety Practice coping skills Continue with outpatient providers and reach out to them as needed Health Concerns: Mood stability and behaviors Sobriety Plan of Treatment: Follow up with your PCP, psychiatric provider and other outpatient providers regarding above concerns Take medications as prescribed Assessment: Patient has insight and demonstrates good judgment in terms of wanting to pursue treatment. Patient has a safety plan that includes presenting to the closest ER or calling 911 if feeling unsafe.
== END 2025-06-06 09:48 | disposition home or self-care (01) | DRG 750 ==
PROVIDERS: Nurse Practitioner Psychiatric/Mental Health; Admitting Provider Psychiatry & Neurology Psychiatry; PCP Student in an Organized Health Care Education/Training Program; Responsible Provider Registered Nurse; Visit Provider Psychiatry & Neurology Psychiatry
DX: F20.9 Schizophrenia, unspecified (principal); R45.851 Suicidal ideations; E78.5 Hyperlipidemia, unspecified; F10.10 Alcohol abuse, uncomplicated; F11.20 Opioid dependence, uncomplicated; F17.210 Nicotine dependence, cigarettes, uncomplicated; Z23 Encounter for immunization; Z71.6 Tobacco abuse counseling; Z79.51 Long term (current) use of inhaled steroids; Z91.51 Personal history of suicidal behavior
CPT/HCPCS: 36415; 80053; 80061; 83036; 84439; 84443; 90656

== ENCOUNTER → 2025-06-03 16:51 | Outpatient (BNV) | payer OTHER, SELFPAY | PROVIDERS: Admitting Provider Psychiatry & Neurology Psychiatry; PCP Student in an Organized Health Care Education/Training Program; Responsible Provider Registered Nurse; Visit Provider Registered Nurse | DX: F20.9 Schizophrenia, unspecified (principal); F43.11 Post-traumatic stress disorder, acute; F11.90 Opioid use, unspecified, uncomplicated; F10.90 Alcohol use, unspecified, uncomplicated | CPT/HCPCS: 99233 ==

== ENCOUNTER → 2025-06-03 16:51 | Outpatient (BNV) | payer MEDICAID, SELFPAY | PROVIDERS: Admitting Provider Psychiatry & Neurology Psychiatry; PCP Student in an Organized Health Care Education/Training Program; Responsible Provider Registered Nurse; Visit Provider Nurse Practitioner Family | DX: E78.5 Hyperlipidemia, unspecified (principal) | CPT/HCPCS: 99221 ==